=== PATIENT | female | born 1955 | race Caucasian/White ===

== ENCOUNTER 2022-01-10 09:45 | Inpatient (IN) ==
[2022-01-10] MEDS ORDERED: Isovue-370 500 ML BOTTLE IVP ONE (11:04)
[2022-01-10] MEDS ORDERED: 0.9 % Sodium Chloride 500 ML IVC ONE (11:04)
[2022-01-10 11:35] LABS: Basophils # 0.1 K/mcL (0.0-0.2); Basophils % 0.7 %; Eosinophils % 0.2 %; Hematocrit 41.7 % (35.3-44.9); Hemoglobin 12.7 g/dL (11.5-15.4); Immature Granulocytes % 1.6 % (0-4); Lymphocytes # 0.3 K/mcL (0.6-4.6); Lymphocytes % 2.5 %; Mean Corpuscular HGB Conc 30.5 g/dL (31.6-35.5); Mean Corpuscular Hemoglobin 24.2 pg (28.0-33.3); Mean Corpuscular Volume 79.4 fL (83.0-100.0); Mean Platelet Volume 10.2 fL (9.4-12.4); Monocytes # 0.9 K/mcL (0.0-1.3); Monocytes % 8.8 %; Neutrophils # 8.6 K/mcL (1.6-8.9); Platelet Count 274 K/mcL (140-400); Red Blood Count 5.25 M/mcL (3.82-4.97); Red Cell Distribution Width 18.8 % (11.5-14.5); Segmented Neutrophils % 86.2 %
[2022-01-10 11:58] LABS: Alanine Aminotransferase 11 Units/L (7-52); Albumin 3.4 g/dL (3.5-5.7); Albumin/Globulin Ratio 0.9 (1.1-2.2); Alkaline Phosphatase 57 Units/L (34-104); Aspartate Amino Transferase 16 Units/L (13-39); BUN/Creatinine Ratio 17 (6-26); Bilirubin,Direct 0.2 mg/dL (0.0-0.2); Bilirubin,Indirect 0.4 mg/dL (0.0-1.0); Bilirubin,Total 0.6 mg/dL (0.3-1.0); Blood Urea Nitrogen 16 mg/dL (8-23); Calcium 9.6 mg/dL (8.6-10.3); Carbon Dioxide 20 mEq/L (23-29); Chloride 91 mEq/L (98-107); Globulin 3.8 g/dL (2.4-3.5); Glucose 139 mg/dL (70-105); Lipase 21 Units/L (11-82); Magnesium 1.7 mg/dL (1.6-2.6); Osmolality,Calculated 277 (280-300); Potassium 4.5 mEq/L (3.5-5.1); Sodium 132 mEq/L (136-145); Total Protein 7.2 g/dL (6.4-8.9); Troponin I < 0.03 ng/mL (< 0.04); eGFR For African Americans > 60 (> 60); eGFR For Non-African Americans 59 (> 60)
[2022-01-10 12:04] LABS: INR 1.4; Prothrombin Time 15.5 Seconds (9.4-12.1)
[2022-01-10 12:07] LABS: Activated Partial Thrombo Time 28.4 Seconds (26.0-36.0)
[2022-01-10 12:15] LABS: Influenza A PCR Positive (Negative); Influenza B PCR Negative (Negative); Resp. Syncytial Virus PCR Negative (Negative)
[2022-01-10 12:27] LABS: SARS-CoV-2 by PCR (In House) Negative (Negative)
[2022-01-10] MEDS ORDERED: Naloxone 0.4 MG/ML INJ IVP PRN (15:00)
[2022-01-10] MEDS ORDERED: Acetaminophen 325 MG TABLET PO PRN (15:05)
[2022-01-10] MEDS ORDERED: Perflutren Lipid Microsphere 1.3 ML in 0.9 % Sodium Chloride 8.7 ML IVP PRN (15:18)
[2022-01-10] MEDS: Pantoprazole 40 MG VIAL IVP SCH (16:12)
[2022-01-10] MEDS: Metoprolol XL (24 HR) Succ 25 MG TAB.ER.24H PO SCH (16:12)
[2022-01-10] MEDS: 0.9 % Sodium Chloride 1,000 ML IVC SCH (16:12)
[2022-01-10] MEDS: allopurinoL 300 MG TABLET PO SCH (17:47)
[2022-01-10] MEDS: Gabapentin 300 MG CAPSULE PO SCH (21:26)
[2022-01-11] MEDS: 0.9 % Sodium Chloride 1,000 ML IVC SCH ×3 (02:18→20:07)
[2022-01-11 03:20] LABS: Basophils % 0.6 %; Eosinophils % 0.4 %; Hematocrit 33.3 % (35.3-44.9); Immature Granulocytes % 1.8 % (0-4); Lymphocytes # 0.3 K/mcL (0.6-4.6); Lymphocytes % 4.8 %; Mean Corpuscular HGB Conc 31.2 g/dL (31.6-35.5); Mean Corpuscular Volume 76.9 fL (83.0-100.0); Mean Platelet Volume 9.6 fL (9.4-12.4); Monocytes # 0.7 K/mcL (0.0-1.3); Monocytes % 13.4 %; Neutrophils # 4.3 K/mcL (1.6-8.9); Platelet Count 215 K/mcL (140-400); Red Blood Count 4.33 M/mcL (3.82-4.97); Red Cell Distribution Width 17.9 % (11.5-14.5); White Blood Count 5.4 K/mcL (4.3-11.1)
[2022-01-11 03:22] LABS: Hemoglobin 10.4 g/dL (11.5-15.4)
[2022-01-11 03:38] LABS: BUN/Creatinine Ratio 16 (6-26); Blood Urea Nitrogen 14 mg/dL (8-23); Calcium 8.3 mg/dL (8.6-10.3); Carbon Dioxide 26 mEq/L (23-29); Chloride 97 mEq/L (98-107); Glucose 82 mg/dL (70-105); Lactate Dehydrogenase 180 Units/L (140-271); Osmolality,Calculated 274 (280-300); Potassium 4.2 mEq/L (3.5-5.1); Sodium 132 mEq/L (136-145); eGFR For African Americans > 60 (> 60); eGFR For Non-African Americans > 60 (> 60)
[2022-01-11 04:20] LABS: Hepatitis B Surface Antigen Nonreactive (Nonreactive)
[2022-01-11 04:49] LABS: Hepatitis C Virus Antibody Nonreactive (Nonreactive)
[2022-01-11 04:50] LABS: Hepatitis A Antibody IgM Nonreactive (Nonreactive)
[2022-01-11] MEDS ORDERED: ceFAZolin 1,000 MG in Water for inj. (sterile) 10 ML IVP ONE ×2 (06:00→07:30)
[2022-01-11] MEDS: Metoprolol XL (24 HR) Succ 25 MG TAB.ER.24H PO SCH (06:10)
[2022-01-11] MEDS ORDERED: Lidocaine -MPF 2% 5 ML VIAL ONE (07:46)
[2022-01-11] MEDS ORDERED: *HR* FentaNYL (PF) 100 MCG/2 ML VIAL ONE (07:46)
[2022-01-11] MEDS ORDERED: *HR* Propofol 200 MG/20 ML VIAL IVP ONE (07:46)
[2022-01-11] MEDS ORDERED: *HR* Midazolam HCl 2 MG/2 ML VIAL ONE (07:46)
[2022-01-11] MEDS ORDERED: Ondansetron 4 MG/2 ML VIAL ONE (07:47)
[2022-01-11] MEDS ORDERED: Metoprolol XL (24 HR) Succ 25 MG TAB.ER.24H PO SCH (09:00)
[2022-01-11] MEDS: PARoxetine 20 MG TABLET PO SCH (09:09)
[2022-01-11] MEDS: allopurinoL 300 MG TABLET PO SCH (09:09)
[2022-01-11] MEDS: lisinopriL 10 MG TABLET PO SCH (09:09)
[2022-01-11] MEDS: Gabapentin 300 MG CAPSULE PO SCH ×3 (09:09→20:07)
[2022-01-11] MEDS: Pantoprazole 40 MG VIAL IVP SCH (10:29)
[2022-01-11] MEDS: *HR* Heparin 5,000 UNIT/ML VIAL SQ SCH (16:13)
[2022-01-11] MEDS: Melatonin 3 MG TABLET PO PRN (22:01)
[2022-01-12 03:24] LABS: Basophils % 0.6 %; Eosinophils % 0.4 %; Hematocrit 32.6 % (35.3-44.9); Hemoglobin 10.1 g/dL (11.5-15.4); Immature Granulocytes % 1.5 % (0-4); Lymphocytes # 0.4 K/mcL (0.6-4.6); Lymphocytes % 8.6 %; Mean Corpuscular Hemoglobin 24.3 pg (28.0-33.3); Mean Corpuscular Volume 78.4 fL (83.0-100.0); Mean Platelet Volume 9.5 fL (9.4-12.4); Monocytes # 0.8 K/mcL (0.0-1.3); Neutrophils # 3.5 K/mcL (1.6-8.9); Platelet Count 196 K/mcL (140-400); Red Blood Count 4.16 M/mcL (3.82-4.97); Red Cell Distribution Width 17.9 % (11.5-14.5); Segmented Neutrophils % 72.9 %; White Blood Count 4.8 K/mcL (4.3-11.1)
[2022-01-12 03:39] LABS: BUN/Creatinine Ratio 14 (6-26); Blood Urea Nitrogen 10 mg/dL (8-23); Calcium 7.9 mg/dL (8.6-10.3); Carbon Dioxide 21 mEq/L (23-29); Chloride 103 mEq/L (98-107); Glucose 86 mg/dL (70-105); Osmolality,Calculated 274 (280-300); Potassium 3.7 mEq/L (3.5-5.1); Sodium 133 mEq/L (136-145); eGFR For African Americans > 60 (> 60); eGFR For Non-African Americans > 60 (> 60)
[2022-01-12] MEDS: 0.9 % Sodium Chloride 1,000 ML IVC SCH ×2 (04:54→17:09)
[2022-01-12] MEDS: *HR* Heparin 5,000 UNIT/ML VIAL SQ SCH ×2 (04:54→15:51)
[2022-01-12] MEDS ORDERED: Ergocalciferol (VIT D2) 50,000 UNIT (1.25MG) CAP PO SCH (09:00)
[2022-01-12] MEDS: Metoprolol XL (24 HR) Succ 25 MG TAB.ER.24H PO SCH (09:10)
[2022-01-12] MEDS: lisinopriL 10 MG TABLET PO SCH (09:10)
[2022-01-12] MEDS: Gabapentin 300 MG CAPSULE PO SCH ×3 (09:10→20:23)
[2022-01-12] MEDS: allopurinoL 300 MG TABLET PO SCH (09:10)
[2022-01-12] MEDS: PARoxetine 20 MG TABLET PO SCH (09:10)
[2022-01-12] MEDS: Pantoprazole 40 MG VIAL IVP SCH (09:11)
[2022-01-12] MEDS: Melatonin 3 MG TABLET PO PRN (20:23)
[2022-01-13 02:53] LABS: Basophils % 0.4 %; Eosinophils # 0.1 K/mcL (0.0-0.6); Eosinophils % 1.3 %; Hematocrit 32.8 % (35.3-44.9); Hemoglobin 10.2 g/dL (11.5-15.4); Immature Granulocytes % 1.3 % (0-4); Lymphocytes # 0.5 K/mcL (0.6-4.6); Lymphocytes % 10.3 %; Mean Corpuscular HGB Conc 31.1 g/dL (31.6-35.5); Mean Corpuscular Hemoglobin 24.6 pg (28.0-33.3); Mean Platelet Volume 9.8 fL (9.4-12.4); Monocytes # 0.8 K/mcL (0.0-1.3); Monocytes % 15.9 %; Neutrophils # 3.4 K/mcL (1.6-8.9); Platelet Count 185 K/mcL (140-400); Red Blood Count 4.15 M/mcL (3.82-4.97); Red Cell Distribution Width 18.1 % (11.5-14.5); Segmented Neutrophils % 70.8 %; White Blood Count 4.8 K/mcL (4.3-11.1)
[2022-01-13 03:12] LABS: BUN/Creatinine Ratio 14 (6-26); Blood Urea Nitrogen 9 mg/dL (8-23); Calcium 8.1 mg/dL (8.6-10.3); Carbon Dioxide 24 mEq/L (23-29); Chloride 103 mEq/L (98-107); Glucose 78 mg/dL (70-105); Osmolality,Calculated 276 (280-300); Potassium 4.1 mEq/L (3.5-5.1); Sodium 134 mEq/L (136-145); eGFR For African Americans > 60 (> 60); eGFR For Non-African Americans > 60 (> 60)
[2022-01-13] MEDS: 0.9 % Sodium Chloride 1,000 ML IVC SCH ×3 (03:22→23:41)
[2022-01-13] MEDS: *HR* Heparin 5,000 UNIT/ML VIAL SQ SCH ×2 (04:53→17:48)
[2022-01-13] MEDS: lisinopriL 10 MG TABLET PO SCH (07:44)
[2022-01-13] MEDS: Gabapentin 300 MG CAPSULE PO SCH ×3 (07:44→20:57)
[2022-01-13] MEDS: allopurinoL 300 MG TABLET PO SCH (07:44)
[2022-01-13] MEDS: PARoxetine 20 MG TABLET PO SCH (07:44)
[2022-01-13] MEDS: Metoprolol XL (24 HR) Succ 25 MG TAB.ER.24H PO SCH (07:52)
[2022-01-13] MEDS: Pantoprazole 40 MG VIAL IVP SCH (07:52)
[2022-01-13] MEDS ORDERED: Ondansetron 4 MG/2 ML VIAL ONE (08:32)
[2022-01-13] MEDS ORDERED: *HR* Propofol 200 MG/20 ML VIAL IVP ONE ×2 (08:32→09:37)
[2022-01-13] MEDS ORDERED: Lidocaine -MPF 2% 5 ML VIAL ONE (08:32)
[2022-01-13] MEDS ORDERED: *HR* FentaNYL (PF) 100 MCG/2 ML VIAL ONE (08:33)
[2022-01-13] MEDS ORDERED: *HR* Midazolam HCl 2 MG/2 ML VIAL ONE (08:33)
[2022-01-13] MEDS ORDERED: Aspirin Enteric Coated 81 MG Tablet PO SCH (09:00)
[2022-01-13] MEDS ORDERED: Ondansetron 4 MG/2 ML VIAL IVP PRN (09:18)
[2022-01-13] MEDS ORDERED: Albuterol 2.5 MG/3 ML NEBULIZER IH PRN (09:18)
[2022-01-13] MEDS ORDERED: *HR* HYDROmorphone PF 0.5 MG/0.5 ML SYRINGE IVP PRN (09:18)
[2022-01-13] MEDS ORDERED: CeFAZolin Syr 2,000MG/20 ML 2,000 MG/20 ML SYRINGE IVPB ONE (09:45)
[2022-01-13] MEDS ORDERED: Ipratropium/Albuterol Neb 3 ML ONE (10:53)
[2022-01-13] MEDS ORDERED: *HR* Dextrose 50 % in Water (Vial) 50 ML VIAL IVP ONE (11:08)
[2022-01-13] MEDS ORDERED: Melatonin 3 MG TABLET PO PRN (12:38)
[2022-01-13] MEDS ORDERED: Acetaminophen 325 MG TABLET PO PRN (12:38)
[2022-01-13] MEDS ORDERED: Naloxone 0.4 MG/ML INJ IVP PRN (12:38)
[2022-01-13] MEDS ORDERED: Perflutren Lipid Microsphere 1.3 ML in 0.9 % Sodium Chloride 8.7 ML IVP PRN (12:38)
[2022-01-14 03:00] LABS: Hematocrit 24.8 % (35.3-44.9); Immature Granulocytes % 0.9 % (0-4); Lymphocytes # 0.3 K/mcL (0.6-4.6); Lymphocytes % 5.9 %; Mean Corpuscular HGB Conc 29.8 g/dL (31.6-35.5); Mean Corpuscular Volume 80.5 fL (83.0-100.0); Mean Platelet Volume 9.5 fL (9.4-12.4); Monocytes # 0.3 K/mcL (0.0-1.3); Monocytes % 7.3 %; Neutrophils # 3.8 K/mcL (1.6-8.9); Platelet Count 144 K/mcL (140-400); Red Blood Count 3.08 M/mcL (3.82-4.97); Red Cell Distribution Width 18.2 % (11.5-14.5); Segmented Neutrophils % 85.9 %; White Blood Count 4.4 K/mcL (4.3-11.1)
[2022-01-14 03:01] LABS: Hemoglobin 7.4 g/dL (11.5-15.4)
[2022-01-14 03:25] LABS: BUN/Creatinine Ratio 20 (6-26); Blood Urea Nitrogen 9 mg/dL (8-23); Calcium 5.9 mg/dL (8.6-10.3); Carbon Dioxide 18 mEq/L (23-29); Chloride 114 mEq/L (98-107); Glucose 145 mg/dL (70-105); Osmolality,Calculated 289 (280-300); Sodium 139 mEq/L (136-145); eGFR For African Americans > 60 (> 60); eGFR For Non-African Americans > 60 (> 60)
[2022-01-14] MEDS: 0.9 % Sodium Chloride 1,000 ML IVC SCH (04:03)
[2022-01-14] MEDS: Calcium Gluconate 1gm/50mL 1 GM/50 ML BAG IVPB SCH ×2 (04:04→05:24)
[2022-01-14] MEDS: *HR* Heparin 5,000 UNIT/ML VIAL SQ SCH (05:25)
[2022-01-14] MEDS ORDERED: Pantoprazole 40 MG VIAL IVP SCH (09:00)
[2022-01-14] MEDS ORDERED: Metoprolol XL (24 HR) Succ 50 MG TAB.ER.24H PO SCH (09:00)
[2022-01-14] MEDS ORDERED: Aspirin Enteric Coated 81 MG Tablet PO SCH (09:00)
[2022-01-14] MEDS ORDERED: PARoxetine 20 MG TABLET PO SCH (09:00)
[2022-01-14] MEDS ORDERED: lisinopriL 10 MG TABLET PO SCH (09:00)
[2022-01-14] MEDS ORDERED: allopurinoL 300 MG TABLET PO SCH (09:00)
[2022-01-14] MEDS: Gabapentin 300 MG CAPSULE PO SCH (09:08)
[2022-01-14 10:29] LABS: Hematocrit 32.2 % (35.3-44.9); Immature Granulocytes % 0.6 % (0-4); Lymphocytes # 0.4 K/mcL (0.6-4.6); Lymphocytes % 5.1 %; Mean Corpuscular HGB Conc 30.4 g/dL (31.6-35.5); Mean Corpuscular Hemoglobin 24.4 pg (28.0-33.3); Mean Corpuscular Volume 80.3 fL (83.0-100.0); Mean Platelet Volume 10.1 fL (9.4-12.4); Monocytes # 0.6 K/mcL (0.0-1.3); Monocytes % 7.1 %; Neutrophils # 6.9 K/mcL (1.6-8.9); Platelet Count 206 K/mcL (140-400); Red Blood Count 4.01 M/mcL (3.82-4.97); Red Cell Distribution Width 18.3 % (11.5-14.5); Segmented Neutrophils % 87.2 %
[2022-01-14 10:41] LABS: Hemoglobin 9.8 g/dL (11.5-15.4); White Blood Count 7.9 K/mcL (4.3-11.1)
[2022-01-14 11:10] LABS: % Iron Saturation 16 % (15-50); BUN/Creatinine Ratio 16 (6-26); Blood Urea Nitrogen 12 mg/dL (8-23); Calcium 8.4 mg/dL (8.6-10.3); Carbon Dioxide 26 mEq/L (23-29); Chloride 101 mEq/L (98-107); Ferritin 798 ng/mL (10-120); Glucose 191 mg/dL (70-105); Iron 28 mcg/dL (50-170); Osmolality,Calculated 281 (280-300); Potassium 4.3 mEq/L (3.5-5.1); Sodium 133 mEq/L (136-145); Transferrin 125 mg/dL (203-362); eGFR For African Americans > 60 (> 60); eGFR For Non-African Americans > 60 (> 60)
[2022-01-14 11:12] LABS: Folate 3.9 ng/mL (3.0-16.0)
[2022-01-14 11:20] VITALS: BP 94/61; PULSE 96; TEMP 97.6; O2SAT 94
[2022-01-19] MEDS ORDERED: Ergocalciferol (VIT D2) 50,000 UNIT (1.25MG) CAP PO SCH (09:00)
== END 2022-01-14 15:01 | disposition home or self-care (01) | DRG 180 ==
LOC: 3BNU 09:45 → EMEROOARM 09:45 → SUATTDRO 14:51 → 3BNU 15:32
PROVIDERS: ADMIT Hospitalist; ATTEND Internal Medicine

== ENCOUNTER 2022-01-19 22:33 | Inpatient (IN) ==
[2022-01-19] MEDS ORDERED: Isovue-370 500 ML BOTTLE IVP ONE (22:54)
[2022-01-19] MEDS ORDERED: 0.9 % Sodium Chloride 1,000 ML IV ONE (22:55)
[2022-01-19 23:10] LABS: Basophils % 0.2 %; Eosinophils % 0.3 %; Hematocrit 36.5 % (35.3-44.9); Hemoglobin 11.3 g/dL (11.5-15.4); Immature Granulocytes % 1.3 % (0-4); Lymphocytes # 0.5 K/mcL (0.6-4.6); Lymphocytes % 5.4 %; Mean Corpuscular Hemoglobin 24.1 pg (28.0-33.3); Mean Platelet Volume 10.1 fL (9.4-12.4); Monocytes # 0.9 K/mcL (0.0-1.3); Monocytes % 9.6 %; Neutrophils # 8.2 K/mcL (1.6-8.9); Nucleated Red Blood Cells 0.3 /100 WBC (0); Platelet Count 326 K/mcL (140-400); Red Blood Count 4.68 M/mcL (3.82-4.97); Segmented Neutrophils % 83.2 %; White Blood Count 9.8 K/mcL (4.3-11.1)
[2022-01-19 23:19] LABS: INR 1.4; Prothrombin Time 15.2 Seconds (9.4-12.1)
[2022-01-19 23:21] LABS: Activated Partial Thrombo Time 25.3 Seconds (26.0-36.0)
[2022-01-19] MEDS ORDERED: cefTRIAXone 1,000 MG in 0.9 % Sodium Chloride Mini Bag 100 ML IVPB ONE (23:23)
[2022-01-19] MEDS ORDERED: Azithromycin 500 MG in 0.9 % Sodium Chloride 250 ML IVPB ONE (23:23)
[2022-01-19 23:37] LABS: Alanine Aminotransferase 13 Units/L (7-52); Albumin 2.7 g/dL (3.5-5.7); Albumin/Globulin Ratio 0.8 (1.1-2.2); Alkaline Phosphatase 55 Units/L (34-104); Aspartate Amino Transferase 20 Units/L (13-39); BUN/Creatinine Ratio 22 (6-26); Bilirubin,Direct 0.1 mg/dL (0.0-0.2); Bilirubin,Indirect 0.6 mg/dL (0.0-1.0); Bilirubin,Total 0.7 mg/dL (0.3-1.0); Blood Urea Nitrogen 16 mg/dL (8-23); Calcium 9.1 mg/dL (8.6-10.3); Carbon Dioxide 26 mEq/L (23-29); Chloride 97 mEq/L (98-107); Globulin 3.3 g/dL (2.4-3.5); Glucose 197 mg/dL (70-105); Osmolality,Calculated 291 (280-300); Potassium 3.6 mEq/L (3.5-5.1); Sodium 137 mEq/L (136-145); Troponin I < 0.03 ng/mL (< 0.04); eGFR For African Americans > 60 (> 60); eGFR For Non-African Americans > 60 (> 60)
[2022-01-19] MEDS ORDERED: Calcium Gluconate 1gm/50mL 1 GM/50 ML BAG IVPB ONE (23:43)
[2022-01-19] MEDS ORDERED: DilTIAZem 50 MG/50 ML IV.SOLN IVC SCH (23:45)
[2022-01-19] MEDS ORDERED: Morphine Sulfate 2 MG/ML SYRINGE IVP ONE (23:53)
[2022-01-20] MEDS ORDERED: Ondansetron 4 MG/2 ML VIAL IVP PRN (00:30)
[2022-01-20 02:07] LABS: Magnesium 1.9 mg/dL (1.6-2.6)
[2022-01-20] MEDS ORDERED: Amiodarone Premix 150 MG/100 ML BAG IVPB ONE (04:32)
[2022-01-20] MEDS ORDERED: *HR* Heparin 5,000 UNIT/ML VIAL IVP PRN (04:43)
[2022-01-20] MEDS ORDERED: *HR* Heparin 5,000 UNIT/ML VIAL IVP ONE (04:43)
[2022-01-20] MEDS ORDERED: Norepinephrine 4 MG/254 ML IV.SOLN IVC SCH (04:45)
[2022-01-20] MEDS ORDERED: NOREPINEPHRINE IVC SCH (04:45)
[2022-01-20] MEDS: Heparin 25,000UNIT/250ML 1/2NS 25,000 UNIT/250 ML IV.SOLN IVC SCH (04:58)
[2022-01-20 05:18] LABS: Hematocrit 32.2 % (35.3-44.9); Hemoglobin 9.8 g/dL (11.5-15.4); Mean Corpuscular HGB Conc 30.4 g/dL (31.6-35.5); Mean Corpuscular Volume 78.9 fL (83.0-100.0); Mean Platelet Volume 10.1 fL (9.4-12.4); Platelet Count 285 K/mcL (140-400); Red Blood Count 4.08 M/mcL (3.82-4.97); Red Cell Distribution Width 19.8 % (11.5-14.5); White Blood Count 10.8 K/mcL (4.3-11.1)
[2022-01-20 05:26] LABS: Heparin anti-factor XA UFH < 0.04 IU/mL (0.30-0.70); INR 1.3; Prothrombin Time 14.9 Seconds (9.4-12.1)
[2022-01-20] MEDS ORDERED: Naloxone 0.4 MG/ML INJ IVP PRN (05:32)
[2022-01-20] MEDS ORDERED: Amiodarone Premix 360 MG/200 ML BAG IVC ONE ×2 (06:05→16:59)
[2022-01-20] MEDS ORDERED: Phenylephrine 10 MG in 0.9 % Sodium Chloride 250 ML IVC SCH (06:15)
[2022-01-20] MEDS ORDERED: *HR* Metoprolol 5 MG/5 ML VIAL IVP ONE (06:53)
[2022-01-20 07:33] LABS: Adenovirus Not Detected (Not Detect); Bordetella Pertussis Not Detected (Not Detect); Chlamydophila pneumoniae Not Detected (Not Detect); Coronavirus 229E Not Detected (Not Detect); Coronavirus HKU1 Not Detected (Not Detect); Coronavirus NL63 Not Detected (Not Detect); Coronavirus OC43 Not Detected (Not Detect); Human Metapneumovirus Not Detected (Not Detect); Human Rhinovirus/Enterovirus Not Detected (Not Detect); Influenza A Subtype 2009 H1 Not Detected (Not Detect); Influenza B Not Detected (Not Detect); Mycoplasma pneumoniae Not Detected (Not Detect); Parainfluenza Virus 1 Not Detected (Not Detect); Parainfluenza Virus 2 Not Detected (Not Detect); Parainfluenza Virus 3 Not Detected (Not Detect); Parainfluenza Virus 4 Not Detected (Not Detect); Respiratory Syncytial Virus Not Detected (Not Detect); SARS-CoV-2 Not Detected (Not Detect)
[2022-01-20] MEDS: Piperacillin/Tazobactam 3.375 GM in 0.9 % Sodium Chloride Mini Bag 100 ML IVPB SCH ×3 (08:06→23:53)
[2022-01-20 08:35] LABS: Alanine Aminotransferase 16 Units/L (7-52); Albumin 2.6 g/dL (3.5-5.7); Albumin/Globulin Ratio 0.9 (1.1-2.2); Alkaline Phosphatase 54 Units/L (34-104); Aspartate Amino Transferase 23 Units/L (13-39); BUN/Creatinine Ratio 19 (6-26); Bilirubin,Total 0.3 mg/dL (0.3-1.0); Blood Urea Nitrogen 18 mg/dL (8-23); Calcium 8.4 mg/dL (8.6-10.3); Carbon Dioxide 28 mEq/L (23-29); Chloride 99 mEq/L (98-107); Glucose 182 mg/dL (70-105); Osmolality,Calculated 291 (280-300); Potassium 3.9 mEq/L (3.5-5.1); Sodium 137 mEq/L (136-145); Total Protein 5.6 g/dL (6.4-8.9); eGFR For African Americans > 60 (> 60); eGFR For Non-African Americans > 60 (> 60)
[2022-01-20 09:22] LABS: Phosphorous 5.1 mg/dL (2.7-4.5); Uric Acid 5.4 mg/dL (2.3-7.6)
[2022-01-20] MEDS ORDERED: Phenylephrine 50 MG in 0.9 % Sodium Chloride 250 ML IVC SCH (09:30)
[2022-01-20] MEDS: Amiodarone Premix 360 MG/200 ML BAG IVC ONE ×2 (11:00→12:04)
[2022-01-20] MEDS: allopurinoL 300 MG TABLET PO SCH (14:12)
[2022-01-20] MEDS: 0.9 % Sodium Chloride 1,000 ML IVC SCH ×2 (14:13→23:54)
[2022-01-20] MEDS: Dexamethasone Sodium Phos/PF 10 MG/ML VIAL IVP SCH (14:13)
[2022-01-20] MEDS ORDERED: 0.9 % Sodium Chloride 1,000 ML IVC SCH (14:15)
[2022-01-20] MEDS ORDERED: Acetaminophen 325 MG TABLET PO PRN (15:32)
[2022-01-20 15:51] LABS: Hepatitis B Surface Antigen Nonreactive (Nonreactive)
[2022-01-20 16:19] LABS: HIV-1&2 Antibody & p24 Ag Nonreactive (Nonreactive)
[2022-01-20 16:20] LABS: Hepatitis C Virus Antibody Nonreactive (Nonreactive)
[2022-01-20 16:22] LABS: Hepatitis A Antibody IgM Nonreactive (Nonreactive)
[2022-01-20] MEDS ORDERED: Amiodarone Premix 360 MG/200 ML BAG IVC SCH (16:57)
[2022-01-20 19:00] LABS: Phosphorous 4.3 mg/dL (2.7-4.5); Potassium 3.9 mEq/L (3.5-5.1); Uric Acid 5.1 mg/dL (2.3-7.6)
[2022-01-20] MEDS: *HR* HYDROcodone/Acet 7.5/325 mg TABLET PO PRN (21:17)
[2022-01-20] MEDS: Amiodarone Premix 360 MG/200 ML BAG IVC SCH (23:20)
[2022-01-21] MEDS ORDERED: Albuterol 2.5 MG/3 ML NEBULIZER IH PRN
[2022-01-21] MEDS ORDERED: Hydrocortisone Sodium Succ 100 MG/2 ML VIAL IVP PRN
[2022-01-21] MEDS ORDERED: Famotidine 20 MG/2 ML VIAL IVP PRN
[2022-01-21 03:13] LABS: Hematocrit 32.4 % (35.3-44.9); Hemoglobin 9.9 g/dL (11.5-15.4); Mean Corpuscular HGB Conc 30.6 g/dL (31.6-35.5); Mean Corpuscular Hemoglobin 24.8 pg (28.0-33.3); Mean Platelet Volume 10.4 fL (9.4-12.4); Platelet Count 305 K/mcL (140-400); Red Cell Distribution Width 19.8 % (11.5-14.5); White Blood Count 11.1 K/mcL (4.3-11.1)
[2022-01-21 03:30] LABS: BUN/Creatinine Ratio 20 (6-26); Blood Urea Nitrogen 19 mg/dL (8-23); Calcium 8.5 mg/dL (8.6-10.3); Carbon Dioxide 26 mEq/L (23-29); Chloride 100 mEq/L (98-107); Glucose 183 mg/dL (70-105); Lactate Dehydrogenase 274 Units/L (140-271); Osmolality,Calculated 291 (280-300); Phosphorous 4.1 mg/dL (2.7-4.5); Sodium 137 mEq/L (136-145); Uric Acid 4.8 mg/dL (2.3-7.6); eGFR For African Americans > 60 (> 60); eGFR For Non-African Americans 58 (> 60)
[2022-01-21] MEDS: Piperacillin/Tazobactam 3.375 GM in 0.9 % Sodium Chloride Mini Bag 100 ML IVPB SCH ×3 (07:38→23:21)
[2022-01-21] MEDS: Dexamethasone Sodium Phos/PF 10 MG/ML VIAL IVP SCH (07:39)
[2022-01-21] MEDS: allopurinoL 300 MG TABLET PO SCH (07:39)
[2022-01-21] MEDS ORDERED: Lidocaine -MPF 1% 5 ML AMPUL ONE (08:05)
[2022-01-21] MEDS: 0.9 % Sodium Chloride 1,000 ML IVC SCH ×2 (09:33→23:16)
[2022-01-21] MEDS: *HR* HYDROcodone/Acet 7.5/325 mg TABLET PO PRN ×2 (09:33→20:50)
[2022-01-21] MEDS: Amiodarone Premix 360 MG/200 ML BAG IVC SCH (09:34)
[2022-01-21] MEDS ORDERED: CYCLOPHOSPHAMIDE IVPB SCH (09:45)
[2022-01-21 09:59] LABS: RBC,Pleural Fluid < 2000 RBC/mcL
[2022-01-21 10:20] LABS: Appearance of Pleural Fl Clear (Clear); Basophils,Pleural Fluid 0 %; Eosinophils,Pleural Fluid 0 %
[2022-01-21 10:24] LABS: Amylase,Pleural Fluid < 10 Units/L (No Ref Range); Glucose,Pleural Fluid 164 mg/dL (No Ref Range); LDH,Pleural Fluid 100 Units/L (No Ref Range); Total Protein,Pleural Fluid < 2.0 g/dL
[2022-01-21 10:58] LABS: Phosphorous 3.7 mg/dL (2.7-4.5); Potassium 4.2 mEq/L (3.5-5.1); Uric Acid 4.5 mg/dL (2.3-7.6)
[2022-01-21] MEDS ORDERED: *HR* FentaNYL (PF) 100 MCG/2 ML VIAL ONE (11:28)
[2022-01-21] MEDS ORDERED: *HR* Midazolam HCl 2 MG/2 ML VIAL ONE (11:28)
[2022-01-21] MEDS ORDERED: *HR* Propofol 200 MG/20 ML VIAL IVP ONE (11:28)
[2022-01-21] MEDS ORDERED: Lidocaine -MPF 2% 5 ML VIAL ONE (11:31)
[2022-01-21] MEDS ORDERED: Ondansetron 4 MG/2 ML VIAL ONE (11:31)
[2022-01-21] MEDS ORDERED: Lidocaine HCL 4 ML Topical Solution (Laryng-O-Jet Kit Sterile Pak) TP ONE (11:31)
[2022-01-21] MEDS ORDERED: *HR* Succinylcholine 200 MG/10 ML VIAL IVP ONE (11:31)
[2022-01-21] MEDS ORDERED: EPHEDrine 50 MG/ML VIAL ONE (13:06)
[2022-01-21] MEDS ORDERED: *HR* Vasopressin 20 UNIT/ML VIAL ONE (13:07)
[2022-01-21 13:42] LABS: VBG Base Excess -3 mEq/L; VBG Chloride 102 mEq/L (98-107); VBG Glucose 172 mg/dl (65-95); VBG HCO3 24 mEq/L (21-27); VBG Ionized Calcium 1.19 mmol/L (1.15-1.35); VBG Oxygen Saturation 89 %; VBG PCO2 53 mmHg (41-51); VBG PH 7.27 pH Units (7.32-7.42); VBG PO2 65 mmHg (25-50); VBG Total CO2 26 mEq/L
[2022-01-21] MEDS ORDERED: Heparin 1,000 UNITS/500 mL 500 ML ONE (14:16)
[2022-01-21 14:35] LABS: ABG Base Excess -3 mEq/L (-2 to 3); ABG Chloride 103 mEq/L (98-107); ABG Glucose 233 mg/dL (60-95); ABG HCO3 21 mEq/L (21-27); ABG Ionized Calcium 1.16 mmol/L (1.15-1.35); ABG Oxygen Saturation 94 % (95-98); ABG PCO2 35 mmHg (35-45); ABG PH 7.39 pH Units (7.32-7.45); ABG PO2 72 mmHg (85-104); ABG TCO2 22 mEq/L (20-26)
[2022-01-21] MEDS: Heparin 25,000UNIT/250ML 1/2NS 25,000 UNIT/250 ML IV.SOLN IVC SCH (15:57)
[2022-01-21] MEDS ORDERED: Dexamethasone Sodium Phos/PF 10 MG/ML VIAL IVP SCH (16:00)
[2022-01-21] MEDS ORDERED: EPINEPHrine 1 MG/ML VIAL SQ PRN (16:00)
[2022-01-21] MEDS: 0.9 % Sodium Chloride 500 ML IVC SCH ×2 (16:00→19:33)
[2022-01-21] MEDS ORDERED: Isovue-370 500 ML BOTTLE IVP ONE ×2 (16:03)
[2022-01-21 16:08] LABS: Basophils % 0.2 %; Hematocrit 29.2 % (35.3-44.9); Hemoglobin 8.8 g/dL (11.5-15.4); Immature Granulocytes % 2.2 % (0-4); Lymphocytes # 0.3 K/mcL (0.6-4.6); Lymphocytes % 2.4 %; Mean Corpuscular HGB Conc 30.1 g/dL (31.6-35.5); Mean Corpuscular Hemoglobin 24.2 pg (28.0-33.3); Mean Corpuscular Volume 80.4 fL (83.0-100.0); Mean Platelet Volume 10.2 fL (9.4-12.4); Monocytes # 0.4 K/mcL (0.0-1.3); Monocytes % 2.8 %; Neutrophils # 12.2 K/mcL (1.6-8.9); Nucleated Red Blood Cells 0.5 /100 WBC (0); Platelet Count 245 K/mcL (140-400); Red Blood Count 3.63 M/mcL (3.82-4.97); Red Cell Distribution Width 19.7 % (11.5-14.5); Segmented Neutrophils % 92.4 %; White Blood Count 13.2 K/mcL (4.3-11.1)
[2022-01-21 16:31] LABS: ABG Base Excess -1 mEq/L (-2 to 3); ABG HCO3 24 mEq/L (21-27); ABG Oxygen Saturation 100 % (95-98); ABG PCO2 42 mmHg (35-45); ABG PH 7.37 pH Units (7.32-7.45); ABG PO2 214 mmHg (85-104); ABG TCO2 25 mEq/L (20-26); Blood Gas VT 550 cc
[2022-01-21] MEDS: CYCLOPHOSPHAMIDE IVPB SCH ×2 (17:29→19:34)
[2022-01-21] MEDS: SODIUM CHLORIDE 0.9% IVPB SCH ×2 (17:29→19:34)
[2022-01-21 18:15] LABS: Hepatitis B Core IgM Nonreactive (Nonreactive)
[2022-01-21 19:26] LABS: Phosphorous 3.2 mg/dL (2.7-4.5); Potassium 3.6 mEq/L (3.5-5.1); Uric Acid 4.2 mg/dL (2.3-7.6)
[2022-01-21] MEDS: FentaNYL (PF) 1,000 MCG/100 ML IV.SOLN IVC SCH ×2 (19:37→21:47)
[2022-01-21] MEDS ORDERED: Artificial Tears SOLN 15 ML BOTTLE BOTH EYES PRN (19:41)
[2022-01-21] MEDS: Artificial Tears SOLN 15 ML BOTTLE BOTH EYES SCH ×2 (20:50→23:23)
[2022-01-21] MEDS: Acyclovir 200 MG CAPSULE GTUBE SCH (20:50)
[2022-01-21] MEDS: Chlorhexidine Rinse 15 ML MOUTHWASH MM SCH (20:50)
[2022-01-21 21:39] LABS: ABG Base Excess -3 mEq/L (-2 to 3); ABG HCO3 25 mEq/L (21-27); ABG Oxygen Saturation 90 % (95-98); ABG PCO2 57 mmHg (35-45); ABG PH 7.24 pH Units (7.32-7.45); ABG PO2 70 mmHg (85-104); ABG TCO2 26 mEq/L (20-26); Blood Gas Pressure Support 10 cm H2O
[2022-01-21] MEDS ORDERED: Dexmedetomidine HCl 400 MCG/100 ML MLS IVC ONE (21:43)
[2022-01-21] MEDS: Dexmedetomidine HCl 400 MCG/100 ML MLS IVC SCH (21:48)
[2022-01-21] MEDS: Phenylephrine 20 MG in 0.9 % Sodium Chloride 250 ML IVC SCH (22:40)
[2022-01-22 02:39] LABS: Basophils % 0.2 %; Hemoglobin 8.8 g/dL (11.5-15.4); Lymphocytes # 0.4 K/mcL (0.6-4.6); Lymphocytes % 1.9 %; Mean Corpuscular HGB Conc 30.3 g/dL (31.6-35.5); Mean Corpuscular Hemoglobin 24.3 pg (28.0-33.3); Mean Corpuscular Volume 80.1 fL (83.0-100.0); Mean Platelet Volume 10.6 fL (9.4-12.4); Monocytes # 0.8 K/mcL (0.0-1.3); Monocytes % 3.9 %; Nucleated Red Blood Cells 0.2 /100 WBC (0); Platelet Count 252 K/mcL (140-400); Red Blood Count 3.62 M/mcL (3.82-4.97); Red Cell Distribution Width 20.1 % (11.5-14.5); White Blood Count 19.4 K/mcL (4.3-11.1)
[2022-01-22 02:58] LABS: BUN/Creatinine Ratio 21 (6-26); Blood Urea Nitrogen 22 mg/dL (8-23); Calcium 8.1 mg/dL (8.6-10.3); Carbon Dioxide 25 mEq/L (23-29); Chloride 104 mEq/L (98-107); Glucose 165 mg/dL (70-105); Lactate Dehydrogenase 238 Units/L (140-271); Osmolality,Calculated 291 (280-300); Potassium 3.8 mEq/L (3.5-5.1); Sodium 137 mEq/L (136-145); Uric Acid 4.2 mg/dL (2.3-7.6); eGFR For African Americans > 60 (> 60); eGFR For Non-African Americans 54 (> 60)
[2022-01-22] MEDS: CYCLOPHOSPHAMIDE IVPB SCH ×2 (05:05→16:43)
[2022-01-22] MEDS: SODIUM CHLORIDE 0.9% IVPB SCH ×2 (05:05→16:43)
[2022-01-22] MEDS: Heparin 25,000UNIT/250ML 1/2NS 25,000 UNIT/250 ML IV.SOLN IVC SCH (05:17)
[2022-01-22] MEDS: 0.9 % Sodium Chloride 1,000 ML IVC SCH ×3 (05:18→17:05)
[2022-01-22] MEDS: Artificial Tears SOLN 15 ML BOTTLE BOTH EYES SCH ×6 (05:18→23:55)
[2022-01-22] MEDS: 0.9 % Sodium Chloride 500 ML IVC SCH (05:24)
[2022-01-22 05:51] LABS: ABG Base Excess -2 mEq/L (-2 to 3); ABG HCO3 22 mEq/L (21-27); ABG Oxygen Saturation 96 % (95-98); ABG PCO2 35 mmHg (35-45); ABG PH 7.41 pH Units (7.32-7.45); ABG PO2 77 mmHg (85-104); ABG TCO2 23 mEq/L (20-26); Blood Gas VT 550 cc
[2022-01-22] MEDS: allopurinoL 300 MG TABLET PO SCH (07:07)
[2022-01-22] MEDS: Acyclovir 200 MG CAPSULE GTUBE SCH ×2 (07:07→19:43)
[2022-01-22] MEDS: Piperacillin/Tazobactam 3.375 GM in 0.9 % Sodium Chloride Mini Bag 100 ML IVPB SCH ×3 (07:08→23:55)
[2022-01-22] MEDS: Chlorhexidine Rinse 15 ML MOUTHWASH MM SCH ×2 (07:08→19:43)
[2022-01-22] MEDS: FentaNYL (PF) 1,000 MCG/100 ML IV.SOLN IVC SCH (10:33)
[2022-01-22] MEDS: Dexmedetomidine HCl 400 MCG/100 ML MLS IVC SCH (12:00)
[2022-01-22] MEDS: Phenylephrine 20 MG in 0.9 % Sodium Chloride 250 ML IVC SCH (12:03)
[2022-01-22 15:11] LABS: Potassium 3.8 mEq/L (3.5-5.1)
[2022-01-22] MEDS ORDERED: Dexamethasone Sodium Phos/PF 10 MG/ML VIAL IVP SCH ×2 (16:00→17:00)
[2022-01-22] MEDS: Dexamethasone Sodium Phos/PF 10 MG/ML VIAL IVP SCH (16:12)
[2022-01-22 21:20] LABS: Phosphorous 3.7 mg/dL (2.7-4.5); Potassium 3.8 mEq/L (3.5-5.1); Uric Acid 4.1 mg/dL (2.3-7.6)
[2022-01-22] MEDS: *HR* Heparin 5,000 UNIT/ML VIAL IVP PRN (21:25)
[2022-01-23] MEDS: Artificial Tears SOLN 15 ML BOTTLE BOTH EYES SCH ×5 (02:52→20:28)
[2022-01-23 03:10] LABS: Basophils % 0.1 %; Hematocrit 27.4 % (35.3-44.9); Hemoglobin 8.3 g/dL (11.5-15.4); Immature Granulocytes % 0.7 % (0-4); Lymphocytes # 0.2 K/mcL (0.6-4.6); Lymphocytes % 0.9 %; Mean Corpuscular HGB Conc 30.3 g/dL (31.6-35.5); Mean Corpuscular Volume 82.5 fL (83.0-100.0); Mean Platelet Volume 10.3 fL (9.4-12.4); Monocytes # 0.6 K/mcL (0.0-1.3); Neutrophils # 18.2 K/mcL (1.6-8.9); Platelet Count 196 K/mcL (140-400); Red Blood Count 3.32 M/mcL (3.82-4.97); Red Cell Distribution Width 20.8 % (11.5-14.5); Segmented Neutrophils % 95.3 %; White Blood Count 19.1 K/mcL (4.3-11.1)
[2022-01-23 03:28] LABS: Lactate Dehydrogenase 257 Units/L (140-271); Magnesium 1.9 mg/dL (1.6-2.6)
[2022-01-23 03:29] LABS: Phosphorous 3.4 mg/dL (2.7-4.5); Potassium 3.7 mEq/L (3.5-5.1); Uric Acid 4.1 mg/dL (2.3-7.6)
[2022-01-23 03:29] LABS: VBG Ionized Calcium 1.18 mmol/L (1.15-1.35)
[2022-01-23 03:32] LABS: Anisocytosis 2+ (Not Present); Platelet Estimate Normal (Normal)
[2022-01-23] MEDS: 0.9 % Sodium Chloride 1,000 ML IVC SCH ×3 (03:41→23:16)
[2022-01-23 04:14] LABS: BUN/Creatinine Ratio 24 (6-26); Blood Urea Nitrogen 26 mg/dL (8-23); Calcium 7.7 mg/dL (8.6-10.3); Carbon Dioxide 23 mEq/L (23-29); Chloride 109 mEq/L (98-107); Glucose 165 mg/dL (70-105); Osmolality,Calculated 298 (280-300); Potassium 3.7 mEq/L (3.5-5.1); Sodium 140 mEq/L (136-145); eGFR For African Americans > 60 (> 60); eGFR For Non-African Americans 51 (> 60)
[2022-01-23 04:47] LABS: ABG Base Excess -4 mEq/L (-2 to 3); ABG HCO3 22 mEq/L (21-27); ABG Oxygen Saturation 94 % (95-98); ABG PCO2 44 mmHg (35-45); ABG PO2 76 mmHg (85-104); ABG TCO2 23 mEq/L (20-26); Blood Gas Modality ASSIST CONTROL; Blood Gas VT 550 cc
[2022-01-23] MEDS: Dexamethasone Sodium Phos/PF 10 MG/ML VIAL IVP SCH ×2 (04:49→16:20)
[2022-01-23] MEDS: Heparin 25,000UNIT/250ML 1/2NS 25,000 UNIT/250 ML IV.SOLN IVC SCH ×2 (04:55→12:57)
[2022-01-23] MEDS: SODIUM CHLORIDE 0.9% IVPB SCH ×2 (05:09→16:35)
[2022-01-23] MEDS: CYCLOPHOSPHAMIDE IVPB SCH ×2 (05:09→16:35)
[2022-01-23] MEDS: Piperacillin/Tazobactam 3.375 GM in 0.9 % Sodium Chloride Mini Bag 100 ML IVPB SCH ×3 (08:48→23:46)
[2022-01-23] MEDS: Acyclovir 200 MG CAPSULE GTUBE SCH ×2 (08:49→20:27)
[2022-01-23] MEDS: allopurinoL 300 MG TABLET PO SCH (08:49)
[2022-01-23] MEDS: *HR* Heparin 5,000 UNIT/ML VIAL IVP PRN (09:19)
[2022-01-23] MEDS ORDERED: Dextrose 4 GM Chewable Tablets PO PRN ×2 (10:10)
[2022-01-23 11:12] LABS: Phosphorous 4.2 mg/dL (2.7-4.5); Potassium 3.8 mEq/L (3.5-5.1); Uric Acid 4.1 mg/dL (2.3-7.6)
[2022-01-23] MEDS: Insulin LISPRO 300 UNITS/3 ML VIAL SUBQ SCH ×2 (12:12→16:55)
[2022-01-23] MEDS: Chlorhexidine Rinse 15 ML MOUTHWASH MM SCH ×2 (12:35→20:27)
[2022-01-23 13:50] LABS: Estimated Average Glucose 131 mg/dl; Hemoglobin A1C 6.2 %
[2022-01-23 18:07] LABS: Phosphorous 4.7 mg/dL (2.7-4.5); Potassium 4.1 mEq/L (3.5-5.1); Uric Acid 4.1 mg/dL (2.3-7.6)
[2022-01-23] MEDS ORDERED: Furosemide 40 MG in 0.9 % Sodium Chloride 50 ML IV ONE (19:09)
[2022-01-23] MEDS ORDERED: Furosemide 40 MG/4 ML VIAL IVP ONE (19:15)
[2022-01-23] MEDS: Morphine Sulfate 2 MG/ML SYRINGE IVP PRN (21:23)
[2022-01-23 23:28] LABS: Fluid Source for Cholesterol PLEURAL FLUID; Fluid Source for Triglycerides PLEURAL FLUID
[2022-01-23] MEDS ORDERED: Albumin 25% 25gram/100mL 25 GM/100 ML IV.SOLN IVPB ONE (23:34)
[2022-01-23] MEDS ORDERED: Bumetanide 1 MG/4 ML VIAL IVP ONE (23:35)
[2022-01-23] MEDS: Levalbuterol Neb 1.25 MG/3 ML IH PRN (23:54)
[2022-01-24] MEDS: Artificial Tears SOLN 15 ML BOTTLE BOTH EYES SCH ×6 (00:42→19:56)
[2022-01-24] MEDS: Morphine Sulfate 2 MG/ML SYRINGE IVP PRN (02:00)
[2022-01-24] MEDS: Levalbuterol Neb 1.25 MG/3 ML IH PRN ×2 (04:00→19:52)
[2022-01-24 06:21] LABS: Basophils % 0.1 %; Hemoglobin 8.2 g/dL (11.5-15.4); Lymphocytes % 0.2 %
[2022-01-24 06:23] LABS: Hematocrit 28.3 % (35.3-44.9); Immature Granulocytes % 2.3 % (0-4); Mean Corpuscular Hemoglobin 24.8 pg (28.0-33.3); Mean Corpuscular Volume 85.5 fL (83.0-100.0); Mean Platelet Volume 10.6 fL (9.4-12.4); Monocytes # 0.2 K/mcL (0.0-1.3); Monocytes % 0.8 %; Platelet Count 194 K/mcL (140-400); Red Blood Count 3.31 M/mcL (3.82-4.97); Red Cell Distribution Width 21.4 % (11.5-14.5); Segmented Neutrophils % 96.6 %; White Blood Count 20.4 K/mcL (4.3-11.1)
[2022-01-24 06:30] LABS: VBG Ionized Calcium 1.13 mmol/L (1.15-1.35)
[2022-01-24 06:32] LABS: Neutrophils # 19.7 K/mcL (1.6-8.9)
[2022-01-24 06:40] LABS: Calcium 7.7 mg/dL (8.6-10.3); Phosphorous 5.9 mg/dL (2.7-4.5); Potassium 4.2 mEq/L (3.5-5.1)
[2022-01-24] MEDS: Dexmedetomidine HCl 400 MCG/100 ML MLS IVC SCH ×4 (06:43→21:28)
[2022-01-24 06:49] LABS: ABG Base Excess -9 mEq/L (-2 to 3); ABG HCO3 22 mEq/L (21-27); ABG Oxygen Saturation 71 % (95-98); ABG PCO2 81 mmHg (35-45); ABG PH 7.04 pH Units (7.32-7.45); ABG PO2 55 mmHg (85-104); ABG TCO2 25 mEq/L (20-26)
[2022-01-24 06:53] LABS: Hypochromasia Present (Not Present)
[2022-01-24 06:54] LABS: Platelet Estimate Normal (Normal)
[2022-01-24] MEDS: FentaNYL (PF) 1,000 MCG/100 ML IV.SOLN IVC SCH ×3 (07:30→17:00)
[2022-01-24] MEDS: Norepinephrine 4 MG/254 ML IV.SOLN IVC SCH (07:31)
[2022-01-24] MEDS: 0.9 % Sodium Chloride 500 ML IVC SCH (07:58)
[2022-01-24] MEDS: Phenylephrine 20 MG in 0.9 % Sodium Chloride 250 ML IVC SCH (07:59)
[2022-01-24] MEDS: Insulin LISPRO 300 UNITS/3 ML VIAL SUBQ SCH ×4 (08:02→20:12)
[2022-01-24] MEDS: Piperacillin/Tazobactam 3.375 GM in 0.9 % Sodium Chloride Mini Bag 100 ML IVPB SCH ×2 (08:02→16:00)
[2022-01-24] MEDS: Acyclovir 200 MG CAPSULE GTUBE SCH ×2 (08:03→19:55)
[2022-01-24] MEDS: allopurinoL 300 MG TABLET PO SCH (08:03)
[2022-01-24] MEDS: Chlorhexidine Rinse 15 ML MOUTHWASH MM SCH ×2 (08:03→19:56)
[2022-01-24 08:07] LABS: ABG Base Excess -5 mEq/L (-2 to 3); ABG HCO3 22 mEq/L (21-27); ABG Oxygen Saturation 93 % (95-98); ABG PCO2 52 mmHg (35-45); ABG PH 7.24 pH Units (7.32-7.45); ABG PO2 80 mmHg (85-104); ABG TCO2 24 mEq/L (20-26); Blood Gas Modality ASSIST CONTROL; Blood Gas VT 480 cc
[2022-01-24] MEDS: Dexamethasone Sodium Phos/PF 10 MG/ML VIAL IVP SCH (08:26)
[2022-01-24] MEDS: SODIUM CHLORIDE 0.9% IVPB SCH (08:48)
[2022-01-24] MEDS: CYCLOPHOSPHAMIDE IVPB SCH (08:48)
[2022-01-24] MEDS ORDERED: 0.9 % Sodium Chloride 1,000 ML ONE (09:31)
[2022-01-24 10:19] LABS: Cholesterol,Body Fluid 30 mg/dL; Triglycerides,Body Fluid 18 mg/dL
[2022-01-24] MEDS: *HR* Midazolam HCl 2 MG/2 ML VIAL IVP PRN ×3 (11:53→16:30)
[2022-01-24] MEDS ORDERED: Furosemide 40 MG/4 ML VIAL IVP ONE (13:31)
[2022-01-24] MEDS ORDERED: Albumin 25% 25gram/100mL 25 GM/100 ML IV.SOLN IVPB ONE (13:31)
[2022-01-24] MEDS ORDERED: *HR* Midazolam HCl 2 MG/2 ML VIAL IVP ONE (13:58)
[2022-01-24] MEDS ORDERED: *HR* Etomidate 20 MG/10 ML AMPUL IVP ONE (13:58)
[2022-01-24] MEDS: *HR* Heparin 5,000 UNIT/ML VIAL IVP PRN (14:49)
[2022-01-24] MEDS: Pantoprazole 40 MG VIAL IVP SCH (14:49)
[2022-01-24] MEDS ORDERED: Heparin 25,000UNIT/250ML 1/2NS 25,000 UNIT/250 ML IV.SOLN IVC SCH (15:00)
[2022-01-24] MEDS ORDERED: FUROSEMIDE IVPB ONE (15:33)
[2022-01-24] MEDS ORDERED: SODIUM CHLORIDE 0.9% IVPB ONE (15:33)
[2022-01-24] MEDS ORDERED: *HR* Heparin 5,000 UNIT/ML VIAL ONE (15:59)
[2022-01-24] MEDS ORDERED: 0.9 % Sodium Chloride 500 ML ONE (16:00)
[2022-01-24 17:54] LABS: Hematocrit 21.5 % (35.3-44.9); Hemoglobin 6.5 g/dL (11.5-15.4); Mean Corpuscular HGB Conc 30.2 g/dL (31.6-35.5); Mean Corpuscular Hemoglobin 24.7 pg (28.0-33.3); Mean Corpuscular Volume 81.7 fL (83.0-100.0); Mean Platelet Volume 10.8 fL (9.4-12.4); Platelet Count 128 K/mcL (140-400); Red Blood Count 2.63 M/mcL (3.82-4.97); Red Cell Distribution Width 20.7 % (11.5-14.5); White Blood Count 9.9 K/mcL (4.3-11.1)
[2022-01-24 18:03] LABS: Appearance of Body Fluid Cloudy (Clear); Volume of Body Fluid 15 mL
[2022-01-24] MEDS: 0.9 % Sodium Chloride 1,000 ML IVC SCH (18:12)
[2022-01-24] MEDS: Heparin 25,000UNIT/250ML 1/2NS 25,000 UNIT/250 ML IV.SOLN IVC SCH (19:12)
[2022-01-24] MEDS ORDERED: 0.9 % Sodium Chloride 250 ML ONE (19:58)
[2022-01-25] MEDS: FentaNYL (PF) 1,000 MCG/100 ML IV.SOLN IVC SCH ×4 (00:19→18:15)
[2022-01-25] MEDS: Artificial Tears SOLN 15 ML BOTTLE BOTH EYES SCH ×6 (00:38→19:52)
[2022-01-25] MEDS: Phenylephrine 20 MG in 0.9 % Sodium Chloride 250 ML IVC SCH (00:38)
[2022-01-25] MEDS: Insulin LISPRO 300 UNITS/3 ML VIAL SUBQ SCH ×6 (00:38→19:52)
[2022-01-25] MEDS: Piperacillin/Tazobactam 3.375 GM in 0.9 % Sodium Chloride Mini Bag 100 ML IVPB SCH ×3 (00:39→15:56)
[2022-01-25 01:39] LABS: Hematocrit 24.8 % (35.3-44.9); Lymphocytes # 0.1 K/mcL (0.6-4.6); Lymphocytes % 0.4 %; Mean Corpuscular HGB Conc 32.3 g/dL (31.6-35.5); Mean Corpuscular Hemoglobin 26.1 pg (28.0-33.3); Mean Platelet Volume 11.4 fL (9.4-12.4); Monocytes # 0.1 K/mcL (0.0-1.3); Monocytes % 0.4 %; Neutrophils # 11.1 K/mcL (1.6-8.9); Platelet Count 135 K/mcL (140-400); Red Blood Count 3.06 M/mcL (3.82-4.97); Red Cell Distribution Width 20.6 % (11.5-14.5); Segmented Neutrophils % 98.2 %; White Blood Count 11.3 K/mcL (4.3-11.1)
[2022-01-25] MEDS: Dexmedetomidine HCl 400 MCG/100 ML MLS IVC SCH ×6 (02:16→23:41)
[2022-01-25] MEDS: Levalbuterol Neb 1.25 MG/3 ML IH PRN ×4 (04:00→19:56)
[2022-01-25 04:16] LABS: Hematocrit 23.6 % (35.3-44.9); Hemoglobin 7.7 g/dL (11.5-15.4); Immature Granulocytes % 0.9 % (0-4); Lymphocytes # 0.1 K/mcL (0.6-4.6); Lymphocytes % 0.6 %; Mean Corpuscular HGB Conc 32.6 g/dL (31.6-35.5); Mean Corpuscular Hemoglobin 26.1 pg (28.0-33.3); Mean Platelet Volume 11.1 fL (9.4-12.4); Monocytes % 0.4 %; Neutrophils # 10.5 K/mcL (1.6-8.9); Platelet Count 117 K/mcL (140-400); Red Blood Count 2.95 M/mcL (3.82-4.97); Red Cell Distribution Width 20.3 % (11.5-14.5); Segmented Neutrophils % 98.1 %; White Blood Count 10.7 K/mcL (4.3-11.1)
[2022-01-25 04:19] LABS: ABG Base Excess -5 mEq/L (-2 to 3); ABG HCO3 18 mEq/L (21-27); ABG Oxygen Saturation 91 % (95-98); ABG PCO2 26 mmHg (35-45); ABG PH 7.46 pH Units (7.32-7.45); ABG PO2 57 mmHg (85-104); ABG TCO2 19 mEq/L (20-26); Blood Gas VT 480 cc
[2022-01-25 04:50] LABS: VBG Ionized Calcium 1.06 mmol/L (1.15-1.35)
[2022-01-25 04:51] LABS: Albumin 2.6 g/dL (3.5-5.7); Bilirubin,Total 0.7 mg/dL (0.3-1.0); Calcium 7.5 mg/dL (8.6-10.3); Globulin 2.5 g/dL (2.4-3.5); Magnesium 2.1 mg/dL (1.6-2.6); Potassium 3.7 mEq/L (3.5-5.1); Total Protein 5.1 g/dL (6.4-8.9)
[2022-01-25] MEDS ORDERED: Calcium Gluconate 1gm/50mL 1 GM/50 ML BAG IVPB ONE (05:40)
[2022-01-25] MEDS: allopurinoL 300 MG TABLET PO SCH (07:30)
[2022-01-25] MEDS: Acyclovir 200 MG CAPSULE GTUBE SCH ×2 (07:30→19:53)
[2022-01-25] MEDS: Pantoprazole 40 MG VIAL IVP SCH (07:30)
[2022-01-25] MEDS: Chlorhexidine Rinse 15 ML MOUTHWASH MM SCH ×2 (07:30→19:52)
[2022-01-25] MEDS: Norepinephrine 4 MG/254 ML IV.SOLN IVC SCH (07:30)
[2022-01-25] MEDS ORDERED: *HR* Heparin 10,000 UNIT/10 ML VIAL IV PRN (10:18)
[2022-01-25] MEDS ORDERED: 0.9 % Sodium Chloride 250 ML IVC PRN (10:18)
[2022-01-25] MEDS ORDERED: 0.9 % Sodium Chloride 1,000 ML PRIME SCH (10:30)
[2022-01-25] MEDS ORDERED: Permethrin Cream Rinse 60 ML LIQUID TP ONE (11:03)
[2022-01-25] MEDS: *HR* Midazolam HCl 2 MG/2 ML VIAL IVP PRN (12:35)
[2022-01-25] MEDS: *HR* Heparin 5,000 UNIT/ML VIAL SQ SCH ×2 (14:40→20:03)
[2022-01-25] MEDS ORDERED: *HR* Midazolam HCl 5 MG/5 ML VIAL IVP ONE (20:39)
[2022-01-26] MEDS: Piperacillin/Tazobactam 3.375 GM in 0.9 % Sodium Chloride Mini Bag 100 ML IVPB SCH ×4 (01:00→23:07)
[2022-01-26] MEDS: Artificial Tears SOLN 15 ML BOTTLE BOTH EYES SCH ×7 (01:00→23:07)
[2022-01-26] MEDS: *HR* Midazolam HCl 2 MG/2 ML VIAL IVP PRN (01:15)
[2022-01-26] MEDS: Insulin LISPRO 300 UNITS/3 ML VIAL SUBQ SCH ×6 (01:45→20:41)
[2022-01-26] MEDS: FentaNYL (PF) 1,000 MCG/100 ML IV.SOLN IVC SCH ×3 (01:47→14:50)
[2022-01-26 03:21] LABS: VBG Ionized Calcium 1.08 mmol/L (1.15-1.35)
[2022-01-26 03:31] LABS: Basophils % 0.1 %; Hematocrit 22.3 % (35.3-44.9); Hemoglobin 7.3 g/dL (11.5-15.4); Immature Platelets 10.9 % (1.1-6.1); Lymphocytes % 0.2 %; Mean Corpuscular HGB Conc 32.7 g/dL (31.6-35.5); Mean Corpuscular Hemoglobin 25.9 pg (28.0-33.3); Mean Corpuscular Volume 79.1 fL (83.0-100.0); Mean Platelet Volume 10.8 fL (9.4-12.4); Monocytes % 0.1 %; Neutrophils # 9.2 K/mcL (1.6-8.9); Red Blood Count 2.82 M/mcL (3.82-4.97); Red Cell Distribution Width 20.6 % (11.5-14.5); Segmented Neutrophils % 97.6 %; White Blood Count 9.4 K/mcL (4.3-11.1)
[2022-01-26 03:34] LABS: Platelet Count 90 K/mcL (140-400)
[2022-01-26 03:41] LABS: Albumin 2.4 g/dL (3.5-5.7); Bilirubin,Total 0.5 mg/dL (0.3-1.0); Calcium 7.5 mg/dL (8.6-10.3); Globulin 2.4 g/dL (2.4-3.5); Phosphorous 4.3 mg/dL (2.7-4.5); Potassium 3.8 mEq/L (3.5-5.1); Total Protein 4.8 g/dL (6.4-8.9)
[2022-01-26] MEDS: Levalbuterol Neb 1.25 MG/3 ML IH PRN ×4 (03:46→20:04)
[2022-01-26] MEDS: *HR* Heparin 5,000 UNIT/ML VIAL SQ SCH ×3 (04:04→20:42)
[2022-01-26 04:19] LABS: ABG Base Excess -2 mEq/L (-2 to 3); ABG HCO3 23 mEq/L (21-27); ABG Oxygen Saturation 92 % (95-98); ABG PCO2 37 mmHg (35-45); ABG PH 7.41 pH Units (7.32-7.45); ABG PO2 63 mmHg (85-104); ABG TCO2 24 mEq/L (20-26); Blood Gas VT 480 cc
[2022-01-26] MEDS: Dexmedetomidine HCl 400 MCG/100 ML MLS IVC SCH ×4 (04:19→22:00)
[2022-01-26] MEDS: Phenylephrine 20 MG in 0.9 % Sodium Chloride 250 ML IVC SCH ×2 (05:17→20:43)
[2022-01-26] MEDS: Calcium Gluconate 1gm/50mL 1 GM/50 ML BAG IVPB SCH ×2 (05:57→06:42)
[2022-01-26] MEDS: Chlorhexidine Rinse 15 ML MOUTHWASH MM SCH ×2 (08:00→20:41)
[2022-01-26] MEDS: Acyclovir 200 MG CAPSULE GTUBE SCH ×2 (08:00→20:42)
[2022-01-26] MEDS: Pantoprazole 40 MG VIAL IVP SCH (08:01)
[2022-01-26] MEDS: allopurinoL 300 MG TABLET PO SCH (08:01)
[2022-01-26] MEDS: Norepinephrine 4 MG/254 ML IV.SOLN IVC SCH (20:41)
[2022-01-27] MEDS: Insulin LISPRO 300 UNITS/3 ML VIAL SUBQ SCH ×7 (00:28→23:20)
[2022-01-27] MEDS: FentaNYL (PF) 1,000 MCG/100 ML IV.SOLN IVC SCH ×5 (00:50→23:16)
[2022-01-27] MEDS: Artificial Tears SOLN 15 ML BOTTLE BOTH EYES SCH ×6 (03:00→23:16)
[2022-01-27 03:26] LABS: Basophils % 0.2 %; Eosinophils % 0.2 %; Hematocrit 23.8 % (35.3-44.9); Hemoglobin 7.3 g/dL (11.5-15.4); Immature Granulocytes % 5.8 % (0-4); Immature Platelets 12.2 % (1.1-6.1); Lymphocytes % 0.3 %; Mean Corpuscular HGB Conc 30.7 g/dL (31.6-35.5); Mean Corpuscular Hemoglobin 25.3 pg (28.0-33.3); Mean Corpuscular Volume 82.4 fL (83.0-100.0); Mean Platelet Volume 10.9 fL (9.4-12.4); Monocytes % 0.2 %; Neutrophils # 6.1 K/mcL (1.6-8.9); Platelet Count 62 K/mcL (140-400); Red Blood Count 2.89 M/mcL (3.82-4.97); Red Cell Distribution Width 21.3 % (11.5-14.5); Segmented Neutrophils % 93.3 %; White Blood Count 6.5 K/mcL (4.3-11.1)
[2022-01-27 03:33] LABS: VBG Ionized Calcium 1.15 mmol/L (1.15-1.35)
[2022-01-27] MEDS: Levalbuterol Neb 1.25 MG/3 ML IH PRN (03:40)
[2022-01-27 03:49] LABS: ABG Base Excess -2 mEq/L (-2 to 3); ABG HCO3 24 mEq/L (21-27); ABG Oxygen Saturation 99 % (95-98); ABG PCO2 50 mmHg (35-45); ABG PH 7.29 pH Units (7.32-7.45); ABG PO2 135 mmHg (85-104); ABG TCO2 26 mEq/L (20-26); Blood Gas VT 450 cc
[2022-01-27 03:50] LABS: Albumin 2.4 g/dL (3.5-5.7); Albumin/Globulin Ratio 0.9 (1.1-2.2); Bilirubin,Total 0.5 mg/dL (0.3-1.0); Calcium 7.7 mg/dL (8.6-10.3); Globulin 2.6 g/dL (2.4-3.5); Phosphorous 5.3 mg/dL (2.7-4.5); Potassium 4.2 mEq/L (3.5-5.1)
[2022-01-27] MEDS: *HR* Heparin 5,000 UNIT/ML VIAL SQ SCH (05:33)
[2022-01-27] MEDS: Norepinephrine 4 MG/254 ML IV.SOLN IVC SCH (05:38)
[2022-01-27] MEDS: Dexmedetomidine HCl 400 MCG/100 ML MLS IVC SCH ×4 (06:54→20:29)
[2022-01-27] MEDS ORDERED: 0.9 % Sodium Chloride 1,000 ML PRIME SCH (07:45)
[2022-01-27] MEDS ORDERED: 0.9 % Sodium Chloride 250 ML IVC PRN (07:45)
[2022-01-27] MEDS: Pantoprazole 40 MG VIAL IVP SCH (07:46)
[2022-01-27] MEDS: Acyclovir 200 MG CAPSULE GTUBE SCH ×2 (07:46→20:58)
[2022-01-27] MEDS: allopurinoL 300 MG TABLET PO SCH (07:46)
[2022-01-27] MEDS: Piperacillin/Tazobactam 3.375 GM in 0.9 % Sodium Chloride Mini Bag 100 ML IVPB SCH ×2 (07:46→17:35)
[2022-01-27] MEDS: Chlorhexidine Rinse 15 ML MOUTHWASH MM SCH ×2 (07:47→20:58)
[2022-01-27 09:45] LABS: Uric Acid 6.2 mg/dL (2.3-7.6)
[2022-01-27] MEDS: Levalbuterol Neb 1.25 MG/3 ML IH SCH ×3 (11:10→20:29)
[2022-01-27] MEDS: *HR* Midazolam HCl 2 MG/2 ML VIAL IVP PRN (14:15)
[2022-01-27] MEDS: Phenylephrine 20 MG in 0.9 % Sodium Chloride 250 ML IVC SCH (20:59)
[2022-01-28] MEDS: Dexmedetomidine HCl 400 MCG/100 ML MLS IVC SCH ×5 (02:35→22:50)
[2022-01-28] MEDS: Artificial Tears SOLN 15 ML BOTTLE BOTH EYES SCH ×5 (04:20→20:43)
[2022-01-28] MEDS: Insulin LISPRO 300 UNITS/3 ML VIAL SUBQ SCH ×5 (04:20→20:44)
[2022-01-28 04:40] LABS: Eosinophils % 0.6 %; Hemoglobin 7.2 g/dL (11.5-15.4)
[2022-01-28 04:42] LABS: Hematocrit 22.5 % (35.3-44.9); Immature Granulocytes % 6.2 % (0-4); Immature Platelets 16.4 % (1.1-6.1); Lymphocytes % 0.6 %; Mean Corpuscular Hemoglobin 25.4 pg (28.0-33.3); Mean Corpuscular Volume 79.5 fL (83.0-100.0); Monocytes % 0.6 %; Neutrophils # 1.5 K/mcL (1.6-8.9); Red Blood Count 2.83 M/mcL (3.82-4.97); White Blood Count 1.6 K/mcL (4.3-11.1)
[2022-01-28] MEDS: Levalbuterol Neb 1.25 MG/3 ML IH SCH ×4 (04:42→19:51)
[2022-01-28 04:47] LABS: Platelet Count 36 K/mcL (140-400)
[2022-01-28 04:49] LABS: ABG Base Excess 3 mEq/L (-2 to 3); ABG HCO3 28 mEq/L (21-27); ABG Oxygen Saturation 95 % (95-98); ABG PCO2 50 mmHg (35-45); ABG PH 7.36 pH Units (7.32-7.45); ABG PO2 82 mmHg (85-104); ABG TCO2 30 mEq/L (20-26); Blood Gas Modality ASSIST CONTROL; Blood Gas VT 410 cc
[2022-01-28 05:00] LABS: Calcium 7.7 mg/dL (8.6-10.3); Magnesium 1.9 mg/dL (1.6-2.6); Phosphorous 4.6 mg/dL (2.7-4.5); Potassium 3.7 mEq/L (3.5-5.1)
[2022-01-28 05:05] LABS: Anisocytosis 1+ (Not Present); Hypochromasia Present (Not Present); Platelet Estimate Marked Decrease (Normal)
[2022-01-28] MEDS: Norepinephrine 4 MG/254 ML IV.SOLN IVC SCH ×2 (05:37→11:42)
[2022-01-28] MEDS: Piperacillin/Tazobactam 3.375 GM in 0.9 % Sodium Chloride Mini Bag 100 ML IVPB SCH ×2 (05:41→16:56)
[2022-01-28] MEDS ORDERED: 0.9 % Sodium Chloride 250 ML IVC PRN (07:37)
[2022-01-28] MEDS ORDERED: 0.9 % Sodium Chloride 1,000 ML PRIME SCH (07:45)
[2022-01-28] MEDS: allopurinoL 300 MG TABLET PO SCH (08:02)
[2022-01-28] MEDS: Pantoprazole 40 MG VIAL IVP SCH (08:02)
[2022-01-28] MEDS: Chlorhexidine Rinse 15 ML MOUTHWASH MM SCH ×2 (08:02→20:44)
[2022-01-28] MEDS: Acyclovir 200 MG CAPSULE GTUBE SCH ×2 (08:02→20:44)
[2022-01-28] MEDS: FentaNYL (PF) 1,000 MCG/100 ML IV.SOLN IVC SCH ×3 (08:06→23:50)
[2022-01-28] MEDS ORDERED: Albumin 25% 25gram/100mL 25 GM/100 ML IV.SOLN ONE (10:23)
[2022-01-28] MEDS: Phenylephrine 20 MG in 0.9 % Sodium Chloride 250 ML IVC SCH (22:45)
[2022-01-29] MEDS: Dexmedetomidine HCl 400 MCG/100 ML MLS IVC SCH ×7 (01:39→20:35)
[2022-01-29] MEDS: Levalbuterol Neb 1.25 MG/3 ML IH SCH ×5 (03:54→19:57)
[2022-01-29 04:03] LABS: Hemoglobin 6.5 g/dL (11.5-15.4); Mean Corpuscular Volume 81.7 fL (83.0-100.0)
[2022-01-29 04:06] LABS: Eosinophils % 5.9 %; Hematocrit 20.6 % (35.3-44.9); Immature Granulocytes % 11.8 % (0-4); Immature Platelets 19.8 % (1.1-6.1); Lymphocytes % 11.8 %; Mean Corpuscular HGB Conc 31.6 g/dL (31.6-35.5); Mean Corpuscular Hemoglobin 25.8 pg (28.0-33.3); Neutrophils # 0.1 K/mcL (1.6-8.9); Red Blood Count 2.52 M/mcL (3.82-4.97); Red Cell Distribution Width 20.4 % (11.5-14.5); Segmented Neutrophils % 70.5 %
[2022-01-29 04:20] LABS: Platelet Count 23 K/mcL (140-400); White Blood Count 0.1 K/mcL (4.3-11.1)
[2022-01-29] MEDS: FentaNYL (PF) 1,000 MCG/100 ML IV.SOLN IVC SCH ×5 (04:27→22:00)
[2022-01-29 04:32] LABS: ABG Base Excess 2 mEq/L (-2 to 3); ABG HCO3 29 mEq/L (21-27); ABG Oxygen Saturation 87 % (95-98); ABG PCO2 55 mmHg (35-45); ABG PH 7.32 pH Units (7.32-7.45); ABG PO2 59 mmHg (85-104); ABG TCO2 30 mEq/L (20-26); Blood Gas Modality AF; Blood Gas VT 410 cc
[2022-01-29] MEDS: Artificial Tears SOLN 15 ML BOTTLE BOTH EYES SCH ×7 (04:37→23:16)
[2022-01-29] MEDS: Insulin LISPRO 300 UNITS/3 ML VIAL SUBQ SCH ×6 (04:49→19:56)
[2022-01-29 04:54] LABS: Calcium 8.2 mg/dL (8.6-10.3); Magnesium 1.9 mg/dL (1.6-2.6); Potassium 4.1 mEq/L (3.5-5.1)
[2022-01-29] MEDS: Piperacillin/Tazobactam 3.375 GM in 0.9 % Sodium Chloride Mini Bag 100 ML IVPB SCH ×2 (04:57→17:18)
[2022-01-29 05:04] LABS: Anisocytosis 2+ (Not Present); Hypochromasia Present (Not Present); Microcytosis Present (Not Present); Platelet Estimate Marked Decrease (Normal)
[2022-01-29] MEDS ORDERED: 0.9 % Sodium Chloride 250 ML IVC SCH (06:15)
[2022-01-29] MEDS: Pantoprazole 40 MG VIAL IVP SCH (08:23)
[2022-01-29] MEDS: Chlorhexidine Rinse 15 ML MOUTHWASH MM SCH ×2 (08:23→19:56)
[2022-01-29] MEDS: Norepinephrine 4 MG/254 ML IV.SOLN IVC SCH (08:23)
[2022-01-29] MEDS: allopurinoL 300 MG TABLET PO SCH (08:24)
[2022-01-29] MEDS: Acyclovir 200 MG CAPSULE GTUBE SCH ×2 (08:24→19:56)
[2022-01-29] MEDS ORDERED: Vancomycin 1,500 MG/265 ML IV.SOLN IVPB ONE (10:11)
[2022-01-29] MEDS ORDERED: 0.9 % Sodium Chloride 250 ML IVC PRN (11:37)
[2022-01-29] MEDS ORDERED: *HR* Heparin 10,000 UNIT/10 ML VIAL IV PRN (11:37)
[2022-01-29] MEDS ORDERED: 0.9 % Sodium Chloride 1,000 ML PRIME SCH ×2 (11:45→14:45)
[2022-01-29] MEDS ORDERED: *HR* Alteplase (Cathflo) 2 MG VIAL IVP PRN (14:38)
[2022-01-29] MEDS ORDERED: *HR* Heparin 5,000 UNIT/ML VIAL IVP PRN (14:38)
[2022-01-29] MEDS ORDERED: 0.9 % Sodium Chloride 1,000 ML PRIME ONE ×2 (14:38)
[2022-01-29] MEDS: *HR* Midazolam HCl 2 MG/2 ML VIAL IVP PRN ×2 (19:40→22:36)
[2022-01-29] MEDS: PrismaSATE BGK 4/2.5 5,000 ML CRRT SCH ×2 (19:55)
[2022-01-30] MEDS: PrismaSATE BGK 4/2.5 5,000 ML CRRT SCH ×11 (00:28→22:00)
[2022-01-30] MEDS: Insulin LISPRO 300 UNITS/3 ML VIAL SUBQ SCH ×6 (00:30→21:00)
[2022-01-30] MEDS: FentaNYL (PF) 1,000 MCG/100 ML IV.SOLN IVC SCH ×3 (02:06→09:44)
[2022-01-30] MEDS: Dexmedetomidine HCl 400 MCG/100 ML MLS IVC SCH ×9 (03:00→23:00)
[2022-01-30] MEDS: Levalbuterol Neb 1.25 MG/3 ML IH SCH ×4 (03:47→20:10)
[2022-01-30] MEDS: Artificial Tears SOLN 15 ML BOTTLE BOTH EYES SCH ×5 (04:22→20:36)
[2022-01-30 04:28] LABS: ABG Base Excess 1 mEq/L (-2 to 3); ABG HCO3 27 mEq/L (21-27); ABG Oxygen Saturation 100 % (95-98); ABG PCO2 47 mmHg (35-45); ABG PH 7.36 pH Units (7.32-7.45); ABG PO2 277 mmHg (85-104); ABG TCO2 28 mEq/L (20-26); Blood Gas VT 410 cc
[2022-01-30] MEDS: *HR* Midazolam HCl 2 MG/2 ML VIAL IVP PRN ×7 (04:31→23:58)
[2022-01-30 04:37] LABS: ABG Ionized Calcium 1.16 mmol/L (1.15-1.35)
[2022-01-30 04:45] LABS: Hematocrit 25.4 % (35.3-44.9); Immature Platelets 19.2 % (1.1-6.1); Mean Corpuscular HGB Conc 31.5 g/dL (31.6-35.5); Mean Corpuscular Hemoglobin 25.6 pg (28.0-33.3); Mean Corpuscular Volume 81.4 fL (83.0-100.0); Red Blood Count 3.12 M/mcL (3.82-4.97); Red Cell Distribution Width 18.6 % (11.5-14.5)
[2022-01-30 04:52] LABS: Neutrophils # 0.1 K/mcL (1.6-8.9); Platelet Count 12 K/mcL (140-400); White Blood Count 0.1 K/mcL (4.3-11.1)
[2022-01-30 05:13] LABS: Anisocytosis 1+ (Not Present); Platelet Estimate Marked Decrease (Normal)
[2022-01-30] MEDS ORDERED: 0.9 % Sodium Chloride 250 ML IVC SCH (05:15)
[2022-01-30 05:29] LABS: Calcium 7.7 mg/dL (8.6-10.3); Magnesium 1.9 mg/dL (1.6-2.6); Phosphorous 3.4 mg/dL (2.7-4.5)
[2022-01-30] MEDS: Piperacillin/Tazobactam 3.375 GM in 0.9 % Sodium Chloride Mini Bag 100 ML IVPB SCH ×2 (06:00→18:16)
[2022-01-30] MEDS: Chlorhexidine Rinse 15 ML MOUTHWASH MM SCH ×2 (07:27→20:36)
[2022-01-30] MEDS: Acyclovir 200 MG CAPSULE GTUBE SCH ×2 (07:27→20:36)
[2022-01-30] MEDS: Pantoprazole 40 MG VIAL IVP SCH (07:28)
[2022-01-30] MEDS: allopurinoL 300 MG TABLET PO SCH (07:28)
[2022-01-30] MEDS: Norepinephrine 4 MG/254 ML IV.SOLN IVC SCH (08:18)
[2022-01-30] MEDS ORDERED: 0.9 % Sodium Chloride 250 ML ONE (11:02)
[2022-01-30] MEDS ORDERED: Vancomycin 1,250 MG/262.5 ML IV.SOLN IVPB ONE (11:30)
[2022-01-30] MEDS: FentaNYL (PF) 2,500 MCG/50 ML IV.SOLN IVC SCH ×2 (14:04→21:00)
[2022-01-30] MEDS: Phenylephrine 20 MG in 0.9 % Sodium Chloride 250 ML IVC SCH ×2 (14:16→23:00)
[2022-01-30] MEDS ORDERED: Potassium Chloride 40 MEQ/200 ML BAG IVPB PRN (22:00)
[2022-01-30 22:40] LABS: Calcium 7.7 mg/dL (8.6-10.3); Potassium 4.1 mEq/L (3.5-5.1)
[2022-01-31] MEDS: Insulin LISPRO 300 UNITS/3 ML VIAL SUBQ SCH ×6 (00:45→20:45)
[2022-01-31] MEDS: Artificial Tears SOLN 15 ML BOTTLE BOTH EYES SCH ×7 (00:45→23:30)
[2022-01-31] MEDS: *HR* Midazolam HCl 2 MG/2 ML VIAL IVP PRN ×5 (01:00→20:28)
[2022-01-31] MEDS: Piperacillin/Tazobactam 3.375 GM in 0.9 % Sodium Chloride Mini Bag 100 ML IVPB SCH ×3 (02:00→18:08)
[2022-01-31] MEDS: Dexmedetomidine HCl 400 MCG/100 ML MLS IVC SCH ×9 (02:12→23:50)
[2022-01-31 03:43] LABS: Mean Corpuscular Hemoglobin 25.7 pg (28.0-33.3)
[2022-01-31 03:45] LABS: Hematocrit 26.6 % (35.3-44.9); Hemoglobin 8.5 g/dL (11.5-15.4); Immature Platelets 14.2 % (1.1-6.1); Mean Corpuscular Volume 80.4 fL (83.0-100.0); Red Blood Count 3.31 M/mcL (3.82-4.97); Red Cell Distribution Width 18.4 % (11.5-14.5)
[2022-01-31 03:47] LABS: Lymphocytes # 0.1 K/mcL (0.6-4.6)
[2022-01-31 03:48] LABS: Neutrophils # 0.1 K/mcL (1.6-8.9)
[2022-01-31 03:48] LABS: ABG Ionized Calcium 1.13 mmol/L (1.15-1.35)
[2022-01-31 03:50] LABS: Platelet Count 18 K/mcL (140-400); White Blood Count 0.1 K/mcL (4.3-11.1)
[2022-01-31 03:56] LABS: BUN/Creatinine Ratio 25 (6-26); Blood Urea Nitrogen 27 mg/dL (8-23); Calcium 7.7 mg/dL (8.6-10.3); Carbon Dioxide 27 mEq/L (23-29); Chloride 103 mEq/L (98-107); Glucose 149 mg/dL (70-105); Osmolality,Calculated 288 (280-300); Phosphorous 2.4 mg/dL (2.7-4.5); Potassium 4.3 mEq/L (3.5-5.1); Sodium 135 mEq/L (136-145); Vancomycin,Trough 16 mcg/mL (5-10); eGFR For African Americans > 60 (> 60); eGFR For Non-African Americans 51 (> 60)
[2022-01-31] MEDS: PrismaSATE BGK 4/2.5 5,000 ML CRRT SCH ×7 (04:00→21:27)
[2022-01-31] MEDS: Phenylephrine 20 MG in 0.9 % Sodium Chloride 250 ML IVC SCH ×2 (04:00→09:58)
[2022-01-31] MEDS: Levalbuterol Neb 1.25 MG/3 ML IH SCH ×4 (04:01→19:42)
[2022-01-31 04:07] LABS: ABG Base Excess 1 mEq/L (-2 to 3); ABG HCO3 26 mEq/L (21-27); ABG Oxygen Saturation 96 % (95-98); ABG PCO2 43 mmHg (35-45); ABG PH 7.39 pH Units (7.32-7.45); ABG PO2 83 mmHg (85-104); ABG TCO2 28 mEq/L (20-26); Blood Gas VT 410 cc
[2022-01-31 04:10] LABS: Anisocytosis 1+ (Not Present); Hypochromasia Present (Not Present); Microcytosis Present (Not Present); Platelet Estimate Marked Decrease (Normal)
[2022-01-31] MEDS ORDERED: 0.9 % Sodium Chloride 250 ML IVC SCH (05:15)
[2022-01-31] MEDS: FentaNYL (PF) 2,500 MCG/50 ML IV.SOLN IVC SCH ×2 (06:14→15:38)
[2022-01-31] MEDS: Acyclovir 200 MG CAPSULE GTUBE SCH ×2 (07:31→19:49)
[2022-01-31] MEDS: Chlorhexidine Rinse 15 ML MOUTHWASH MM SCH ×2 (07:31→19:49)
[2022-01-31] MEDS: Pantoprazole 40 MG VIAL IVP SCH (07:31)
[2022-01-31] MEDS: allopurinoL 300 MG TABLET PO SCH (07:31)
[2022-01-31] MEDS: Phenylephrine 100 MG in 0.9 % Sodium Chloride 240 ML IVC SCH (15:00)
[2022-01-31] MEDS: Norepinephrine 4 MG/254 ML IV.SOLN IVC SCH (19:33)
[2022-02-01] MEDS: FentaNYL (PF) 2,500 MCG/50 ML IV.SOLN IVC SCH ×3 (00:36→21:59)
[2022-02-01] MEDS: Insulin LISPRO 300 UNITS/3 ML VIAL SUBQ SCH ×6 (00:36→19:24)
[2022-02-01] MEDS: *HR* Midazolam HCl 2 MG/2 ML VIAL IVP PRN ×4 (01:15→23:57)
[2022-02-01] MEDS: PrismaSATE BGK 4/2.5 5,000 ML CRRT SCH ×8 (02:33→21:43)
[2022-02-01] MEDS: Dexmedetomidine HCl 400 MCG/100 ML MLS IVC SCH ×7 (02:36→21:44)
[2022-02-01] MEDS: Artificial Tears SOLN 15 ML BOTTLE BOTH EYES SCH ×6 (03:11→23:37)
[2022-02-01] MEDS: Piperacillin/Tazobactam 3.375 GM in 0.9 % Sodium Chloride Mini Bag 100 ML IVPB SCH ×3 (03:14→17:05)
[2022-02-01 03:52] LABS: Hemoglobin 7.1 g/dL (11.5-15.4); Red Cell Distribution Width 18.9 % (11.5-14.5)
[2022-02-01 03:54] LABS: Hematocrit 21.4 % (35.3-44.9); Immature Platelets 6.3 % (1.1-6.1); Mean Corpuscular HGB Conc 33.2 g/dL (31.6-35.5); Mean Corpuscular Hemoglobin 26.1 pg (28.0-33.3); Mean Corpuscular Volume 78.7 fL (83.0-100.0); Red Blood Count 2.72 M/mcL (3.82-4.97)
[2022-02-01 04:00] LABS: BUN/Creatinine Ratio 26 (6-26); Blood Urea Nitrogen 20 mg/dL (8-23); Calcium 6.2 mg/dL (8.6-10.3); Carbon Dioxide 20 mEq/L (23-29); Chloride 111 mEq/L (98-107); Glucose 154 mg/dL (70-105); Osmolality,Calculated 290 (280-300); Potassium 3.4 mEq/L (3.5-5.1); Sodium 137 mEq/L (136-145); eGFR For African Americans > 60 (> 60); eGFR For Non-African Americans > 60 (> 60)
[2022-02-01 04:07] LABS: Platelet Count 21 K/mcL (140-400)
[2022-02-01] MEDS: Levalbuterol Neb 1.25 MG/3 ML IH SCH ×4 (04:07→22:13)
[2022-02-01 04:12] LABS: ABG Base Excess 3 mEq/L (-2 to 3); ABG HCO3 25 mEq/L (21-27); ABG Oxygen Saturation 99 % (95-98); ABG PCO2 29 mmHg (35-45); ABG PH 7.54 pH Units (7.32-7.45); ABG PO2 116 mmHg (85-104); ABG TCO2 26 mEq/L (20-26); Blood Gas VT 410 cc
[2022-02-01] MEDS ORDERED: 0.9 % Sodium Chloride 2,000 ML ONE (04:21)
[2022-02-01] MEDS ORDERED: *HR* Heparin 5,000 UNIT/ML VIAL ONE (04:30)
[2022-02-01] MEDS ORDERED: 0.9 % Sodium Chloride 1,000 ML ONE (04:50)
[2022-02-01] MEDS: Norepinephrine 4 MG/254 ML IV.SOLN IVC SCH (06:14)
[2022-02-01 06:16] LABS: Anisocytosis 1+ (Not Present); Platelet Estimate Marked Decrease (Normal)
[2022-02-01] MEDS: Acyclovir 200 MG CAPSULE GTUBE SCH ×2 (07:44→19:17)
[2022-02-01] MEDS: Chlorhexidine Rinse 15 ML MOUTHWASH MM SCH ×2 (07:44→19:17)
[2022-02-01] MEDS: Pantoprazole 40 MG VIAL IVP SCH (07:44)
[2022-02-01] MEDS: allopurinoL 300 MG TABLET PO SCH (07:44)
[2022-02-01] MEDS: Phenylephrine 100 MG in 0.9 % Sodium Chloride 240 ML IVC SCH ×3 (08:00→21:59)
[2022-02-01] MEDS ORDERED: Potassium Chloride Elixir 20 MEQ/15 ML UDC GTUBE ONE (09:24)
[2022-02-01 10:02] LABS: ABG Ionized Calcium 1.09 mmol/L (1.15-1.35)
[2022-02-01 10:03] LABS: Magnesium 2.1 mg/dL (1.6-2.6); Phosphorous 2.2 mg/dL (2.7-4.5)
[2022-02-01] MEDS ORDERED: *HR* Rocuronium Bromide 50 MG/5 ML VIAL IVP ONE (11:15)
[2022-02-01 11:43] LABS: ABG Base Excess -1 mEq/L (-2 to 3); ABG HCO3 25 mEq/L (21-27); ABG Oxygen Saturation 95 % (95-98); ABG PCO2 46 mmHg (35-45); ABG PH 7.35 pH Units (7.32-7.45); ABG PO2 81 mmHg (85-104); ABG TCO2 26 mEq/L (20-26); Blood Gas Modality ASSIST CONTROL; Blood Gas VT 410 cc
[2022-02-01] MEDS: Calcium Gluconate 1gm/50mL 1 GM/50 ML BAG IVPB SCH ×2 (11:59→13:16)
[2022-02-01 12:40] LABS: Red Cell Distribution Width 19.3 % (11.5-14.5)
[2022-02-01 12:42] LABS: Hematocrit 24.3 % (35.3-44.9); Hemoglobin 7.7 g/dL (11.5-15.4); Immature Platelets 12.6 % (1.1-6.1); Mean Corpuscular HGB Conc 31.7 g/dL (31.6-35.5); Mean Corpuscular Hemoglobin 25.3 pg (28.0-33.3); Mean Corpuscular Volume 79.9 fL (83.0-100.0); Mean Platelet Volume 11.2 fL (9.4-12.4); Red Blood Count 3.04 M/mcL (3.82-4.97)
[2022-02-01 12:52] LABS: Platelet Count 17 K/mcL (140-400)
[2022-02-01 12:58] LABS: BUN/Creatinine Ratio 24 (6-26); Blood Urea Nitrogen 26 mg/dL (8-23); Calcium 7.5 mg/dL (8.6-10.3); Carbon Dioxide 26 mEq/L (23-29); Chloride 102 mEq/L (98-107); Glucose 147 mg/dL (70-105); Osmolality,Calculated 283 (280-300); Potassium 4.8 mEq/L (3.5-5.1); Sodium 133 mEq/L (136-145); eGFR For African Americans > 60 (> 60); eGFR For Non-African Americans 52 (> 60)
[2022-02-01 18:04] LABS: ABG Ionized Calcium 1.09 mmol/L (1.15-1.35)
[2022-02-01] MEDS ORDERED: Calcium Chloride 1,000 MG in 0.9 % Sodium Chloride 100 ML IVPB ONE (18:45)
[2022-02-01 22:25] LABS: VBG Ionized Calcium 1.16 mmol/L (1.15-1.35)
[2022-02-02] MEDS: Insulin LISPRO 300 UNITS/3 ML VIAL SUBQ SCH ×6 (00:08→19:52)
[2022-02-02] MEDS ORDERED: *HR* Metoprolol 5 MG/5 ML VIAL IVP ONE (00:40)
[2022-02-02] MEDS ORDERED: *HR* Rocuronium Bromide 50 MG/5 ML VIAL IVP ONE (01:35)
[2022-02-02] MEDS: Piperacillin/Tazobactam 3.375 GM in 0.9 % Sodium Chloride Mini Bag 100 ML IVPB SCH ×3 (02:01→17:00)
[2022-02-02] MEDS ORDERED: Albumin 25% 25gram/100mL 25 GM/100 ML IV.SOLN IVPB ONE (02:13)
[2022-02-02] MEDS: Phenylephrine 100 MG in 0.9 % Sodium Chloride 240 ML IVC SCH ×3 (02:25→18:28)
[2022-02-02] MEDS: Levalbuterol Neb 1.25 MG/3 ML IH SCH ×4 (03:49→20:28)
[2022-02-02 03:58] LABS: ABG Base Excess -1 mEq/L (-2 to 3); ABG HCO3 24 mEq/L (21-27); ABG Oxygen Saturation 94 % (95-98); ABG PCO2 39 mmHg (35-45); ABG PO2 73 mmHg (85-104); ABG TCO2 26 mEq/L (20-26); Blood Gas VT 410 cc
[2022-02-02] MEDS: PrismaSATE BGK 4/2.5 5,000 ML CRRT SCH ×8 (04:12→18:00)
[2022-02-02] MEDS: Artificial Tears SOLN 15 ML BOTTLE BOTH EYES SCH ×5 (04:27→19:47)
[2022-02-02] MEDS: Dexmedetomidine HCl 400 MCG/100 ML MLS IVC SCH ×7 (04:28→23:18)
[2022-02-02 04:30] LABS: VBG Ionized Calcium 1.13 mmol/L (1.15-1.35)
[2022-02-02 04:31] LABS: Hematocrit 21.1 % (35.3-44.9); Hemoglobin 6.7 g/dL (11.5-15.4); Mean Corpuscular HGB Conc 31.8 g/dL (31.6-35.5); Mean Corpuscular Hemoglobin 25.8 pg (28.0-33.3); Mean Corpuscular Volume 81.2 fL (83.0-100.0); Red Cell Distribution Width 19.5 % (11.5-14.5)
[2022-02-02 04:33] LABS: Immature Platelets 6.6 % (1.1-6.1); Mean Platelet Volume 9.9 fL (9.4-12.4)
[2022-02-02 04:36] LABS: Platelet Count 22 K/mcL (140-400)
[2022-02-02 04:37] LABS: Platelet Estimate Marked Decrease (Normal)
[2022-02-02 04:51] LABS: Alanine Aminotransferase 27 Units/L (7-52); Albumin 2.9 g/dL (3.5-5.7); Albumin/Globulin Ratio 1.1 (1.1-2.2); Alkaline Phosphatase 101 Units/L (34-104); Aspartate Amino Transferase 28 Units/L (13-39); BUN/Creatinine Ratio 25 (6-26); Bilirubin,Direct 0.5 mg/dL (0.0-0.2); Bilirubin,Indirect 0.4 mg/dL (0.0-1.0); Bilirubin,Total 0.9 mg/dL (0.3-1.0); Blood Urea Nitrogen 27 mg/dL (8-23); Carbon Dioxide 24 mEq/L (23-29); Chloride 100 mEq/L (98-107); Globulin 2.6 g/dL (2.4-3.5); Glucose 185 mg/dL (70-105); Magnesium 2.2 mg/dL (1.6-2.6); Osmolality,Calculated 286 (280-300); Potassium 5.1 mEq/L (3.5-5.1); Sodium 133 mEq/L (136-145); Total Protein 5.5 g/dL (6.4-8.9); eGFR For African Americans > 60 (> 60); eGFR For Non-African Americans 51 (> 60)
[2022-02-02] MEDS ORDERED: 0.9 % Sodium Chloride 250 ML IVC SCH (05:00)
[2022-02-02] MEDS: FentaNYL (PF) 2,500 MCG/50 ML IV.SOLN IVC SCH ×2 (06:14→16:30)
[2022-02-02] MEDS: Norepinephrine 4 MG/254 ML IV.SOLN IVC SCH (06:30)
[2022-02-02] MEDS: Acyclovir 200 MG CAPSULE GTUBE SCH ×2 (07:51→19:47)
[2022-02-02] MEDS: Pantoprazole 40 MG VIAL IVP SCH (07:51)
[2022-02-02] MEDS: Chlorhexidine Rinse 15 ML MOUTHWASH MM SCH ×2 (07:51→19:47)
[2022-02-02] MEDS: allopurinoL 300 MG TABLET PO SCH (07:51)
[2022-02-02] MEDS ORDERED: Amiodarone Premix 360 MG/200 ML BAG IVC ONE (11:05)
[2022-02-02] MEDS ORDERED: Amiodarone Premix 150 MG/100 ML BAG IVPB ONE (11:05)
[2022-02-02] MEDS ORDERED: 0.9 % Sodium Chloride 1,000 ML ONE ×2 (11:40→17:51)
[2022-02-02 15:02] LABS: Hemoglobin 7.9 g/dL (11.5-15.4); Mean Platelet Volume 9.4 fL (9.4-12.4)
[2022-02-02 15:04] LABS: Hematocrit 24.2 % (35.3-44.9); Immature Platelets 7.2 % (1.1-6.1); Mean Corpuscular HGB Conc 32.6 g/dL (31.6-35.5); Mean Corpuscular Hemoglobin 26.9 pg (28.0-33.3); Mean Corpuscular Volume 82.3 fL (83.0-100.0); Red Blood Count 2.94 M/mcL (3.82-4.97); Red Cell Distribution Width 18.6 % (11.5-14.5)
[2022-02-02 15:24] LABS: BUN/Creatinine Ratio 26 (6-26); Blood Urea Nitrogen 28 mg/dL (8-23); Calcium 7.7 mg/dL (8.6-10.3); Carbon Dioxide 24 mEq/L (23-29); Chloride 101 mEq/L (98-107); Glucose 162 mg/dL (70-105); Osmolality,Calculated 285 (280-300); Phosphorous 2.9 mg/dL (2.7-4.5); Potassium 4.7 mEq/L (3.5-5.1); Sodium 133 mEq/L (136-145); eGFR For African Americans > 60 (> 60); eGFR For Non-African Americans 51 (> 60)
[2022-02-02] MEDS: Amiodarone Premix 360 MG/200 ML BAG IVC SCH (17:23)
[2022-02-03] MEDS: Insulin LISPRO 300 UNITS/3 ML VIAL SUBQ SCH ×6 (00:08→19:30)
[2022-02-03] MEDS: Artificial Tears SOLN 15 ML BOTTLE BOTH EYES SCH ×6 (00:08→19:29)
[2022-02-03] MEDS: PrismaSATE BGK 4/2.5 5,000 ML CRRT SCH ×8 (00:15→18:18)
[2022-02-03] MEDS: Dexmedetomidine HCl 400 MCG/100 ML MLS IVC SCH ×7 (02:13→21:35)
[2022-02-03] MEDS: Piperacillin/Tazobactam 3.375 GM in 0.9 % Sodium Chloride Mini Bag 100 ML IVPB SCH ×3 (02:14→18:12)
[2022-02-03 03:33] LABS: Red Cell Distribution Width 18.4 % (11.5-14.5)
[2022-02-03 03:35] LABS: Hematocrit 24.3 % (35.3-44.9); Immature Platelets 3.9 % (1.1-6.1); Mean Corpuscular HGB Conc 32.9 g/dL (31.6-35.5); Mean Corpuscular Hemoglobin 27.2 pg (28.0-33.3); Mean Corpuscular Volume 82.7 fL (83.0-100.0); Mean Platelet Volume 9.4 fL (9.4-12.4); Red Blood Count 2.94 M/mcL (3.82-4.97)
[2022-02-03] MEDS: FentaNYL (PF) 2,500 MCG/50 ML IV.SOLN IVC SCH ×2 (03:42→14:04)
[2022-02-03 03:48] LABS: BUN/Creatinine Ratio 27 (6-26); Blood Urea Nitrogen 28 mg/dL (8-23); Carbon Dioxide 24 mEq/L (23-29); Chloride 101 mEq/L (98-107); Glucose 157 mg/dL (70-105); Magnesium 2.1 mg/dL (1.6-2.6); Osmolality,Calculated 285 (280-300); Potassium 4.6 mEq/L (3.5-5.1); Sodium 133 mEq/L (136-145); eGFR For African Americans > 60 (> 60); eGFR For Non-African Americans 55 (> 60)
[2022-02-03 03:52] LABS: Platelet Count 36 K/mcL (140-400)
[2022-02-03 03:57] LABS: Hypochromasia Present (Not Present); Platelet Estimate Marked Decrease (Normal)
[2022-02-03 03:58] LABS: Anisocytosis 1+ (Not Present)
[2022-02-03] MEDS: Levalbuterol Neb 1.25 MG/3 ML IH SCH ×4 (04:18→19:49)
[2022-02-03] MEDS: Phenylephrine 100 MG in 0.9 % Sodium Chloride 240 ML IVC SCH ×2 (04:19→13:45)
[2022-02-03 04:29] LABS: ABG Base Excess 0 mEq/L (-2 to 3); ABG HCO3 25 mEq/L (21-27); ABG Oxygen Saturation 97 % (95-98); ABG PCO2 42 mmHg (35-45); ABG PH 7.39 pH Units (7.32-7.45); ABG PO2 89 mmHg (85-104); ABG TCO2 27 mEq/L (20-26); Blood Gas Modality ASSIST CONTROL; Blood Gas VT 470 cc
[2022-02-03] MEDS: Amiodarone Premix 360 MG/200 ML BAG IVC SCH ×2 (05:35→18:00)
[2022-02-03] MEDS: Chlorhexidine Rinse 15 ML MOUTHWASH MM SCH ×2 (07:26→19:29)
[2022-02-03] MEDS: allopurinoL 300 MG TABLET PO SCH (07:27)
[2022-02-03] MEDS: Pantoprazole 40 MG VIAL IVP SCH (07:27)
[2022-02-03] MEDS: Acyclovir 200 MG CAPSULE GTUBE SCH ×2 (07:27→19:29)
[2022-02-03] MEDS: *HR* Midazolam HCl 2 MG/2 ML VIAL IVP PRN ×3 (08:13→15:39)
[2022-02-03] MEDS: Norepinephrine 4 MG/254 ML IV.SOLN IVC SCH (19:16)
[2022-02-03] MEDS ORDERED: 0.9 % Sodium Chloride 1,000 ML ONE (21:29)
[2022-02-04] MEDS: Dexmedetomidine HCl 400 MCG/100 ML MLS IVC SCH ×8 (00:31→23:15)
[2022-02-04] MEDS: Insulin LISPRO 300 UNITS/3 ML VIAL SUBQ SCH ×6 (00:35→20:02)
[2022-02-04] MEDS: Artificial Tears SOLN 15 ML BOTTLE BOTH EYES SCH ×6 (00:35→20:02)
[2022-02-04] MEDS: Phenylephrine 100 MG in 0.9 % Sodium Chloride 240 ML IVC SCH ×3 (00:38→22:55)
[2022-02-04] MEDS: FentaNYL (PF) 2,500 MCG/50 ML IV.SOLN IVC SCH ×2 (00:40→12:43)
[2022-02-04] MEDS: Piperacillin/Tazobactam 3.375 GM in 0.9 % Sodium Chloride Mini Bag 100 ML IVPB SCH ×3 (03:49→17:21)
[2022-02-04 03:55] LABS: Hematocrit 22.7 % (35.3-44.9); Hemoglobin 7.4 g/dL (11.5-15.4); Immature Platelets 9.5 % (1.1-6.1); Mean Corpuscular HGB Conc 32.6 g/dL (31.6-35.5); Mean Corpuscular Hemoglobin 26.8 pg (28.0-33.3); Mean Corpuscular Volume 82.2 fL (83.0-100.0); Red Blood Count 2.76 M/mcL (3.82-4.97); Red Cell Distribution Width 18.9 % (11.5-14.5)
[2022-02-04 04:01] LABS: Platelet Count 17 K/mcL (140-400); White Blood Count 0.1 K/mcL (4.3-11.1)
[2022-02-04] MEDS: PrismaSATE BGK 4/2.5 5,000 ML CRRT SCH ×2 (04:01)
[2022-02-04] MEDS: Levalbuterol Neb 1.25 MG/3 ML IH SCH ×4 (04:01→19:55)
[2022-02-04 04:08] LABS: ABG Base Excess -2 mEq/L (-2 to 3); ABG HCO3 22 mEq/L (21-27); ABG Oxygen Saturation 96 % (95-98); ABG PCO2 34 mmHg (35-45); ABG PH 7.42 pH Units (7.32-7.45); ABG PO2 82 mmHg (85-104); ABG TCO2 23 mEq/L (20-26); Blood Gas VT 420 cc
[2022-02-04] MEDS: Amiodarone Premix 360 MG/200 ML BAG IVC SCH ×2 (04:08→16:43)
[2022-02-04 04:11] LABS: BUN/Creatinine Ratio 25 (6-26); Blood Urea Nitrogen 26 mg/dL (8-23); Calcium 7.7 mg/dL (8.6-10.3); Carbon Dioxide 23 mEq/L (23-29); Chloride 100 mEq/L (98-107); Glucose 193 mg/dL (70-105); Magnesium 2.2 mg/dL (1.6-2.6); Osmolality,Calculated 284 (280-300); Phosphorous 2.7 mg/dL (2.7-4.5); Potassium 4.9 mEq/L (3.5-5.1); Sodium 132 mEq/L (136-145); eGFR For African Americans > 60 (> 60); eGFR For Non-African Americans 53 (> 60)
[2022-02-04 04:34] LABS: Anisocytosis 1+ (Not Present); Platelet Estimate Marked Decrease (Normal)
[2022-02-04] MEDS: Norepinephrine 4 MG/254 ML IV.SOLN IVC SCH (07:49)
[2022-02-04] MEDS: Pantoprazole 40 MG VIAL IVP SCH (07:50)
[2022-02-04] MEDS: allopurinoL 300 MG TABLET PO SCH (07:50)
[2022-02-04] MEDS: Acyclovir 200 MG CAPSULE GTUBE SCH ×2 (07:50→20:02)
[2022-02-04] MEDS: Chlorhexidine Rinse 15 ML MOUTHWASH MM SCH ×2 (07:50→20:02)
[2022-02-04] MEDS ORDERED: 0.9 % Sodium Chloride 1,000 ML ONE (09:42)
[2022-02-04] MEDS ORDERED: *HR* Heparin 5,000 UNIT/ML VIAL ONE (09:42)
[2022-02-04] MEDS ORDERED: Albumin 25% 25gram/100mL 25 GM/100 ML IV.SOLN IVPB ONE (10:44)
[2022-02-04] MEDS ORDERED: Bumetanide 1 MG/4 ML VIAL IVP ONE (10:44)
[2022-02-04 13:28] LABS: Calcium 7.8 mg/dL (8.6-10.3); Potassium 4.3 mEq/L (3.5-5.1)
[2022-02-04 18:35] LABS: Potassium 4.2 mEq/L (3.5-5.1)
[2022-02-05] MEDS: Artificial Tears SOLN 15 ML BOTTLE BOTH EYES SCH ×6 (00:26→19:38)
[2022-02-05] MEDS: Insulin LISPRO 300 UNITS/3 ML VIAL SUBQ SCH ×6 (00:27→19:38)
[2022-02-05] MEDS: FentaNYL (PF) 2,500 MCG/50 ML IV.SOLN IVC SCH ×3 (00:28→20:25)
[2022-02-05] MEDS: Piperacillin/Tazobactam 3.375 GM in 0.9 % Sodium Chloride Mini Bag 100 ML IVPB SCH ×3 (02:06→17:50)
[2022-02-05] MEDS: Dexmedetomidine HCl 400 MCG/100 ML MLS IVC SCH ×7 (02:06→22:38)
[2022-02-05] MEDS: Levalbuterol Neb 1.25 MG/3 ML IH SCH ×4 (03:49→21:45)
[2022-02-05 04:15] LABS: Hemoglobin 6.4 g/dL (11.5-15.4); Red Cell Distribution Width 19.7 % (11.5-14.5)
[2022-02-05 04:17] LABS: Lymphocytes % 2.6 %; Mean Corpuscular HGB Conc 33.7 g/dL (31.6-35.5); Mean Corpuscular Hemoglobin 27.5 pg (28.0-33.3); Mean Corpuscular Volume 81.5 fL (83.0-100.0); Monocytes % 7.9 %; Nucleated Red Blood Cells 10.5 /100 WBC (0); Red Blood Count 2.33 M/mcL (3.82-4.97); Segmented Neutrophils % 89.5 %
[2022-02-05 04:24] LABS: Platelet Count 13 K/mcL (140-400); White Blood Count 0.4 K/mcL (4.3-11.1)
[2022-02-05 04:25] LABS: Neutrophils # 0.4 K/mcL (1.6-8.9)
[2022-02-05 04:28] LABS: ABG Base Excess -3 mEq/L (-2 to 3); ABG HCO3 21 mEq/L (21-27); ABG Oxygen Saturation 95 % (95-98); ABG PCO2 32 mmHg (35-45); ABG PH 7.43 pH Units (7.32-7.45); ABG PO2 75 mmHg (85-104); ABG TCO2 22 mEq/L (20-26); Blood Gas VT 420 cc
[2022-02-05] MEDS: Norepinephrine 4 MG/254 ML IV.SOLN IVC SCH (04:30)
[2022-02-05] MEDS: Amiodarone Premix 360 MG/200 ML BAG IVC SCH (04:31)
[2022-02-05 04:34] LABS: Calcium 7.6 mg/dL (8.6-10.3); Magnesium 2.1 mg/dL (1.6-2.6); Phosphorous 2.6 mg/dL (2.7-4.5); Potassium 4.1 mEq/L (3.5-5.1)
[2022-02-05 04:47] LABS: Anisocytosis 1+ (Not Present); Platelet Estimate Marked Decrease (Normal)
[2022-02-05] MEDS: Pantoprazole 40 MG VIAL IVP SCH (09:48)
[2022-02-05] MEDS: allopurinoL 300 MG TABLET PO SCH (09:49)
[2022-02-05] MEDS: Chlorhexidine Rinse 15 ML MOUTHWASH MM SCH ×2 (09:49→19:38)
[2022-02-05] MEDS ORDERED: *HR* Amiodarone 200 MG TABLET GTUBE ONE (10:00)
[2022-02-05] MEDS ORDERED: 0.9 % Sodium Chloride 1,000 ML PRIME SCH (10:00)
[2022-02-05] MEDS: Phenylephrine 100 MG in 0.9 % Sodium Chloride 240 ML IVC SCH ×2 (10:43→19:00)
[2022-02-05] MEDS: PrismaSATE BGK 4/2.5 5,000 ML CRRT SCH ×6 (10:56→21:36)
[2022-02-05] MEDS ORDERED: Albuterol 2.5 MG/3 ML NEBULIZER IH PRN (11:17)
[2022-02-05] MEDS: *HR* Amiodarone 200 MG TABLET GTUBE SCH (19:39)
[2022-02-06] MEDS: Artificial Tears SOLN 15 ML BOTTLE BOTH EYES SCH ×7 (00:12→23:53)
[2022-02-06] MEDS: Insulin LISPRO 300 UNITS/3 ML VIAL SUBQ SCH ×5 (00:13→16:10)
[2022-02-06] MEDS: Piperacillin/Tazobactam 3.375 GM in 0.9 % Sodium Chloride Mini Bag 100 ML IVPB SCH ×3 (01:35→17:56)
[2022-02-06] MEDS: Dexmedetomidine HCl 400 MCG/100 ML MLS IVC SCH ×6 (02:32→23:55)
[2022-02-06] MEDS: Levalbuterol Neb 1.25 MG/3 ML IH SCH ×4 (03:33→21:29)
[2022-02-06] MEDS: Phenylephrine 100 MG in 0.9 % Sodium Chloride 240 ML IVC SCH ×3 (03:49→19:56)
[2022-02-06 03:54] LABS: VBG Ionized Calcium 1.02 mmol/L (1.15-1.35)
[2022-02-06 04:10] LABS: Hematocrit 17.4 % (35.3-44.9); Immature Platelets 21.6 % (1.1-6.1); Mean Corpuscular HGB Conc 33.3 g/dL (31.6-35.5); Mean Corpuscular Hemoglobin 27.6 pg (28.0-33.3); Mean Corpuscular Volume 82.9 fL (83.0-100.0); Nucleated Red Blood Cells 4.3 /100 WBC (0); Red Cell Distribution Width 19.7 % (11.5-14.5); White Blood Count 1.9 K/mcL (4.3-11.1)
[2022-02-06 04:30] LABS: Calcium 7.3 mg/dL (8.6-10.3); Magnesium 2.1 mg/dL (1.6-2.6); Phosphorous 2.7 mg/dL (2.7-4.5); Potassium 4.1 mEq/L (3.5-5.1)
[2022-02-06 04:39] LABS: Hemoglobin 5.8 g/dL (11.5-15.4); Platelet Count 12 K/mcL (140-400)
[2022-02-06 04:39] LABS: ABG Base Excess -2 mEq/L (-2 to 3); ABG HCO3 22 mEq/L (21-27); ABG Oxygen Saturation 99 % (95-98); ABG PCO2 33 mmHg (35-45); ABG PH 7.44 pH Units (7.32-7.45); ABG PO2 146 mmHg (85-104); ABG TCO2 24 mEq/L (20-26); Blood Gas Modality AF; Blood Gas VT 420 cc
[2022-02-06 04:42] LABS: Neutrophils # 1.9 K/mcL (1.6-8.9); Platelet Estimate Marked Decrease (Normal)
[2022-02-06] MEDS: PrismaSATE BGK 4/2.5 5,000 ML CRRT SCH ×9 (04:45→21:55)
[2022-02-06] MEDS: FentaNYL (PF) 2,500 MCG/50 ML IV.SOLN IVC SCH ×2 (07:00→19:00)
[2022-02-06] MEDS ORDERED: *HR* Metoprolol 5 MG/5 ML VIAL IVP PRN (07:21)
[2022-02-06] MEDS: Norepinephrine 4 MG/254 ML IV.SOLN IVC SCH (07:32)
[2022-02-06] MEDS: Pantoprazole 40 MG VIAL IVP SCH (07:36)
[2022-02-06] MEDS: Chlorhexidine Rinse 15 ML MOUTHWASH MM SCH ×2 (07:36→19:31)
[2022-02-06] MEDS: allopurinoL 300 MG TABLET PO SCH (07:37)
[2022-02-06] MEDS: *HR* Amiodarone 200 MG TABLET GTUBE SCH ×2 (07:37→19:31)
[2022-02-06] MEDS: *HR* Dextrose 50 % in Water (Syg) 50 ML SYRINGE IVP PRN ×5 (07:56→14:19)
[2022-02-06] MEDS ORDERED: Calcium Chloride 1,000 MG in 0.9 % Sodium Chloride 100 ML IVPB ONE (12:30)
[2022-02-06] MEDS: D5% in Water 1,000 ML IVC PRN (13:00)
[2022-02-06] MEDS: D10% in Water 1,000 ML IVC SCH ×2 (14:34→21:56)
[2022-02-06 18:21] LABS: Hematocrit 20.9 % (35.3-44.9)
[2022-02-07] MEDS: FentaNYL (PF) 2,500 MCG/50 ML IV.SOLN IVC SCH ×3 (00:14→23:24)
[2022-02-07] MEDS: Piperacillin/Tazobactam 3.375 GM in 0.9 % Sodium Chloride Mini Bag 100 ML IVPB SCH ×3 (01:28→17:11)
[2022-02-07] MEDS: PrismaSATE BGK 4/2.5 5,000 ML CRRT SCH ×5 (01:51→10:51)
[2022-02-07] MEDS: Levalbuterol Neb 1.25 MG/3 ML IH SCH ×4 (03:34→21:06)
[2022-02-07 03:48] LABS: Mean Corpuscular Volume 84.4 fL (83.0-100.0); Red Cell Distribution Width 18.1 % (11.5-14.5)
[2022-02-07 03:50] LABS: Hematocrit 21.6 % (35.3-44.9); Hemoglobin 6.9 g/dL (11.5-15.4); Immature Platelets 15.9 % (1.1-6.1); Mean Corpuscular HGB Conc 31.9 g/dL (31.6-35.5); Mean Platelet Volume 10.7 fL (9.4-12.4); Nucleated Red Blood Cells 4.5 /100 WBC (0); Red Blood Count 2.56 M/mcL (3.82-4.97); White Blood Count 6.9 K/mcL (4.3-11.1)
[2022-02-07] MEDS: Artificial Tears SOLN 15 ML BOTTLE BOTH EYES SCH ×6 (03:51→23:31)
[2022-02-07] MEDS: Phenylephrine 100 MG in 0.9 % Sodium Chloride 240 ML IVC SCH ×5 (03:52→22:45)
[2022-02-07 03:56] LABS: Platelet Count 38 K/mcL (140-400)
[2022-02-07 04:07] LABS: BUN/Creatinine Ratio 16 (6-26); Blood Urea Nitrogen 13 mg/dL (8-23); Calcium 7.4 mg/dL (8.6-10.3); Carbon Dioxide 24 mEq/L (23-29); Chloride 101 mEq/L (98-107); Glucose 150 mg/dL (70-105); Magnesium 2.2 mg/dL (1.6-2.6); Osmolality,Calculated 283 (280-300); Phosphorous 2.1 mg/dL (2.7-4.5); Potassium 3.9 mEq/L (3.5-5.1); Sodium 135 mEq/L (136-145); eGFR For African Americans > 60 (> 60); eGFR For Non-African Americans > 60 (> 60)
[2022-02-07 04:27] LABS: Anisocytosis 1+ (Not Present); Lymphocytes # 0.1 K/mcL (0.6-4.6)
[2022-02-07 04:28] LABS: Platelet Estimate Marked Decrease (Normal)
[2022-02-07 04:29] LABS: Poikilocytosis 1+ (Not Present); Stomatocytes 1+ (Not Present)
[2022-02-07 04:30] LABS: ABG Base Excess -2 mEq/L (-2 to 3); ABG HCO3 22 mEq/L (21-27); ABG Oxygen Saturation 97 % (95-98); ABG PCO2 35 mmHg (35-45); ABG PH 7.41 pH Units (7.32-7.45); ABG PO2 85 mmHg (85-104); ABG TCO2 24 mEq/L (20-26); Blood Gas Modality AF; Blood Gas VT 420 cc
[2022-02-07 04:31] LABS: Monocytes # 0.6 K/mcL (0.0-1.3); Neutrophils # 6.2 K/mcL (1.6-8.9)
[2022-02-07] MEDS ORDERED: *HR* Heparin 5,000 UNIT/ML VIAL ONE ×2 (06:05→12:58)
[2022-02-07] MEDS: *HR* Heparin 5,000 UNIT/ML VIAL IVP PRN ×2 (06:19→13:26)
[2022-02-07] MEDS: Norepinephrine 4 MG/254 ML IV.SOLN IVC SCH ×3 (07:30→19:11)
[2022-02-07] MEDS: Chlorhexidine Rinse 15 ML MOUTHWASH MM SCH ×2 (08:09→20:25)
[2022-02-07] MEDS: Pantoprazole 40 MG VIAL IVP SCH (08:10)
[2022-02-07] MEDS: *HR* Amiodarone 200 MG TABLET GTUBE SCH ×2 (08:10→20:23)
[2022-02-07] MEDS: allopurinoL 300 MG TABLET PO SCH (08:11)
[2022-02-07] MEDS ORDERED: Lidocaine -MPF 1% 5 ML AMPUL INFILT ONE (11:14)
[2022-02-07] MEDS: D10% in Water 1,000 ML IVC SCH ×2 (11:48→20:24)
[2022-02-07] MEDS: Vasopressin 40 UNIT in D5% in Water 100 ML IVC SCH ×2 (12:00→19:27)
[2022-02-07] MEDS: *HR* Dextrose 50 % in Water (Syg) 50 ML SYRINGE IVP PRN ×3 (19:19→23:23)
[2022-02-07] MEDS ORDERED: Norepinephrine 8 MG/250 ML IV.SOLN IVC SCH (19:30)
[2022-02-07] MEDS ORDERED: *HR* Norepinephrine 4 MG/4 ML VIAL IVC ONE (20:50)
[2022-02-07] MEDS ORDERED: 0.9 % Sodium Chloride 250 ML ONE (20:51)
[2022-02-07] MEDS: Norepinephrine 32 MG in 0.9 % Sodium Chloride 218 ML IVC SCH (21:35)
[2022-02-07 23:00] VITALS: O2SAT 98
[2022-02-07] MEDS: D5% in Water 1,000 ML IVC PRN (23:37)
[2022-02-07 23:44] VITALS: TEMP 97.8
[2022-02-08] MEDS: Piperacillin/Tazobactam 3.375 GM in 0.9 % Sodium Chloride Mini Bag 100 ML IVPB SCH (00:15)
[2022-02-08 01:01] VITALS: BP 86/58
[2022-02-08] MEDS: Norepinephrine 32 MG in 0.9 % Sodium Chloride 218 ML IVC SCH (01:56)
[2022-02-08] MEDS: Phenylephrine 100 MG in 0.9 % Sodium Chloride 240 ML IVC SCH (01:56)
[2022-02-08 02:13] VITALS: PULSE 108
== END 2022-02-08 03:25 | disposition expired | DRG 691 ==
LOC: ICNU 22:33 → EMEROOARM 22:33 → SUATTDRO 01-20 05:32 → ICNU 01-20 05:45
PROVIDERS: ADMIT Internal Medicine; ATTEND Student in an Organized Health Care Education/Training Program